=== PATIENT | male | born 1945 | race Hispanic/Latino ===

== ENCOUNTER 2017-07-07 19:29 | Inpatient (IN) | payer MEDICARE, BC ==
[2017-07-07 19:40] VITALS: BMI 42.4
--- NOTE | 2017-07-07 19:55 | CP.PCM.CON ---
History of Present Illness - History of Present Illness History of Present Illness: Tele-Stroke Consultation Note: This is a telehealth visit conducted via bi- directional video conference using the [employer] system. The patient is a 71-year-old man with diabetes, hypertension and previous lacunar infarct who developed left side weakness and facial droop at around 7: 05 PM. He presented to the ED where his peripheral strength seemed to be improving, but he continued to have facial droop and dysarthria. CT scan of the head showed a chronic right caudate lacunar infarct, but no acute findings and no bleed. When I spoke with his , she informed me that he just flew in from [place] and she actually first noticed the facial droop about 4.5 hours ago , but she was not certain if he had it before. On exam, he had a left facial droop, left arm pronator drift, and mild dysarthria. NIHSS was 3. He was hypertensive in the 230's systolic range. Since the patient's symptoms started over 3 hours ago and he had a previous stroke, he was not a candidate for IV tPA. Review of Systems - Review of Systems All systems: reviewed and no additional remarkable complaints except Past Patient History - Infectious Disease Hx of Infectious Diseases: None - Past Social History Smoking Status: Never Smoked - CARDIAC Hx Hypertension: Yes - ENDOCRINE/METABOLIC Hx Diabetes Mellitus Type 2: Yes - INTEGUMENTARY Other/Comment: has been seen by Dr Flores for care to right lower leg/ lymphedema - MUSCULOSKELETAL/RHEUMATOLOGICAL Hx Falls: No - GASTROINTESTINAL Hx Gastrointestinal Disorders: No - PSYCHIATRIC Hx Psychophysiologic Disorder: No Hx Substance Use: No - SURGICAL HISTORY Other/Comment: varicose vein injections with Dr Luis Zhou in 2009 - ANESTHESIA Hx Anesthesia: Yes Hx Anesthesia Reactions: No Hx Malignant Hyperthermia: No Meds Allergies/Adverse Reactions: Allergies Allergy/AdvReac Type Severity Reaction Status Date / Time No Known Allergies Allergy Verified 07/19/14 14:37 - Medications Medications: Current Medications Sodium Chloride (Sodium Chloride 0.9%) 1,000 mls @ 100 mls/hr IV .Q10H RIGO Physical Exam - Neurological Exam Neurological exam: Alert, CN II-XII Intact, Oriented x3, Reflexes Normal Additional comments: Left arm pronator drift, left facial droop, slight dysarthria, right side is normal. NIHSS = 3 Results - Vital Signs Recent Vital Signs: Last Vital Signs Temp 97.5 F L 07/07/17 19:38 Pulse 59 L 07/07/17 19:38 Resp 18 07/07/17 19:38 BP Pulse Ox 97 07/07/17 19:38 - Labs Result Diagrams: 07/07/17 19:59 Assessment & Plan (1) Acute ischemic stroke Assessment and Plan: The patient is not a good candidate for IV tPA due to being outside the time window and having mild symptoms. I recommend the followin. Telemetry and STAT CTA of the head/neck to rule out an LVO 2. MRI of the brain without contrast 3. Echocardiogram with bubble study 4. Load with Plavix 300 mg once and Aspirin 81 mg once, and continue dual antiplatelet therapy with Plavix 75 mg daily and Aspirin 81 mg daily for 21 days , at which point, switch to Plavix monotherapy per the CHANCE trial. 5. FLuids with NS at 100 mL/hr 6. Keep HOB at 15-30 degrees 7. Permissive HTN (only treat BP that is higher than 220/110 mm Hg) 8. CHeck HbA1c, Lipid panel, B12, folate, Vitamin D 9. Give Lipitor 40 mg daily 10. PT/OT eval 11. Case management consult THank you. Status: Acute Priority: High
[2017-07-07 20:03] LABS: BASO # 0.01 K/mm3 (0.0-2.0); BASO % 0.2 % (0.0-3.0); EOS # 0.1 (0.0-0.7); EOS % 1.9 % (1.5-5.0); GRAN # 3.02 (1.4-6.5); GRAN % 56.3 % (50.0-68.0); HEMOGLOBIN 15.2 g/dL (14.0-18.0); LYMPH # 1.6 (1.2-3.4); MEAN CELL VOLUME 94.6 fl (80.0-105.0); MEAN CORPUSCULAR HEMOGLOBIN 32.7 pg (25.0-35.0); MEAN CORPUSCULAR HGB CONC 34.5 g/dl (31.0-37.0); MEAN PLATELET VOLUME 10.3 fl (7.0-11.0); MONO # 0.6 (0.1-0.6); MONO % 11.6 % (1.0-6.0); RBC 4.65 10^6/uL (3.5-6.1); RED CELL DISTRIBUTION WIDTH 13.5 % (11.5-14.5); WHITE BLOOD COUNT 5.4 10^3/ul (4.5-11.0)
[2017-07-07] MEDS ORDERED: Labetalol 5 mg/ml Inj 20ML IV STA (20:03)
[2017-07-07] MEDS ORDERED: Labetalol 5 mg/ml Inj 20ML ONE (20:09)
--- NOTE | 2017-07-07 20:09 | CT ---
EXAM: CT Head Without Intravenous Contrast EXAM DATE/TIME: 07/07/2017 7:37 PM CLINICAL HISTORY: 71 years old, male; Signs and symptoms; Other: Code stroke TECHNIQUE: Axial computed tomography images of the head/brain without intravenous contrast. All CT scans at this facility use one or more dose reduction techniques, viz.: automated exposure control; ma/kV adjustment per patient size (including targeted exams where dose is matched to indication; i.e. head); or iterative reconstruction technique. Coronal and sagittal reformatted images were created and reviewed. COMPARISON: Prior MRI brain of 09/30/2016. FINDINGS: BRAIN: Focal areas of low density in the basal ganglia bilaterally, most compatible with bilateral old/chronic lacunar infarcts. Small foci of air in the brain, just above the skull base on the left. These are most likely intravenous in location, located in the cavernous sinuses, and related to a recent intravenous injection or peripheral IV placement. This finding is unlikely of clinical significance. No significant acute abnormality identified. No acute hemorrhage seen within the brain. No acute extra-axial fluid collections visualized. No evidence of significant mass effect within the brain. No CT findings to suggest an acute, large territorial infarct, however, small or early acute infarcts may not be visible on CT. VENTRICLES: No evidence of significant hydrocephalus. BONES/JOINTS: No acute bony abnormality visualized. SOFT TISSUES: No acute abnormality of the visualized soft tissues is seen. SINUSES: Visualized paranasal sinuses appear clear. MASTOID AIR CELLS: Mastoid air cells appear clear. IMPRESSION: - No acute findings seen within the brain. - See above for remaining findings.
[2017-07-07 20:12] LABS: INR 1.12 (0.93-1.08); PARTIAL THROMBOPLASTIN TIME 31.3 Seconds (25.1-36.5); PROTHROMBIN TIME 12.8 SECONDS (9.4-12.5)
[2017-07-07] MEDS: Sodium Chloride 0.9% 1,000 ML IV SCH (20:15)
[2017-07-07 20:26] LABS: TROPONIN I < 0.01 ng/mL
[2017-07-07 20:41] LABS: ALB/GLOB RATIO 1.2 (1.1-1.8); ALBUMIN 3.9 g/dL (3.0-4.8); ALT/SGPT 38 U/L (7-56); AST/SGOT 30 U/L (17-59); BLOOD UREA NITROGEN 30 mg/dL (7-21); CALCIUM 9.5 mg/dL (8.4-10.5); GFR AFRICAN-AMERICAN > 60; GFR NON-AFRICAN AMERICAN 55; HDL CHOLESTEROL 37 mg/dL (29-60)
[2017-07-07 20:53] LABS: LDL CHOLESTEROL 90 mg/dL (0-129)
--- NOTE | 2017-07-07 21:38 | EDPD ---
HPI Stroke - General Time Seen by Provider: 07/07/17 19:32 Chief Complaint: Weakness/Neurological Deficit Historian: Patient - History of Present Illness Narrative History of Present Illness (Free Text): 07/07/17 19:30 Marciano Warner is a 71 year old male, whose past medical history includes bilateral venous stasis, Diabetes, hypertension, and cardiomyoptathy, who presents to the emergency department complaining of new onset left-sided weakness. Patient states he began experiencing left-sided weakness with associated slurred speech and left-sided facial droop. Patient states symptoms began at 19:00 tonight. Patient denies any fever, chills, chest pain, shortness of breath, abdominal pain, nausea, vomiting, dizziness, or any other complaints. Date:: 07/07/17 Time: 19:30 Onset:: Hours Timing: Currently Symptomatic Context: Home Exacerbated by: Nothing Relieved by: Nothing - Location Location: Speech Locate Left: Face rTPA Inclusion/Exclusion - Refusal of Treatment Patient Refused Treatment: No - Inclusion Criteria for Altepase Patient is 18 years or Older: Yes The Clinical Diagnosis of Ischemic Stroke That is Causing a Potentially Disabling Neurological Deficit: No Time of Onset is Well Established to be Less Than 270 Minute Before Treatment Would Begin: No Risk/Benefit Discussed With Patient/Family Member Present: Yes - Exclusion Criteria for Altepase Uncontrolled Hypertension at Time of Treatment (Systolic BP above 185 or Diastolic BP above 110 mmHg): Yes Active Internal Bleeding: No Known Bleeding Diathesis Including but Not Limited to: Platelets Below 100,000/ mm,PTT Above 40 sec After Heparin Use, Current Use of Oral Anitcoagulant With INR Greater Than 1.7 or PT Greater Than 15 secs: No Evidence of an Intracranial Hemorrhage: No Evidence of Major Acute Infarct With Signs Greater Than 1/3 MCA Territory: No Suspicion of Subarachnoid Hemorrhage on Pretreatment Evaluation Even if CT Head Negative For Hemorrhage: No - Warning to TPA With Conditions Following Conditions Weighed Against Anticipated Benefit: Yes Condition: Stroke Serevity Too Mild Past Medical History - Provider Review Nursing Documentation Reviewed: Yes - Past History Past History: No Previous - Infectious Disease Hx of Infectious Diseases: None - Past Medical History Past Medical History: No Previous - Cardiac Hx Hypertension: Yes - Endocrine/Metabolic Hx Diabetes Mellitus Type 2: Yes - Integumentary Other/Comment: has been seen by Dr Flores for care to right lower leg/ lymphedema - Musculoskeletal/Rheumatological Hx Falls: No - Gastrointestinal Hx Gastrointestinal Disorders: No - Psychiatric Hx Psychophysiologic Disorder: No Hx Substance Use: No - Past Surgical History Past Surgical History: Non-Contributing - Surgical History Other/Comment: varicose vein injections with Dr Luis Zhou in 2010 - Anesthesia Hx Anesthesia: Yes Hx Anesthesia Reactions: No Hx Malignant Hyperthermia: No - Suicidal Assessment Feels Threatened In Home Enviroment: No Family/Social History - Family/Social History Family History: Non-Contributory - DrRonald Review Nursing documentation reviewed.: Yes Allergies/Home Meds Allergies/Adverse Reactions: Allergies No Known Allergies Allergy (Verified 07/07/17 22:42) Home Medications: Home Meds Medication Instructions Recorded Confirmed Carvedilol [Coreg Cr] 20 mg PO DAILY 06/23/14 07/07/17 Furosemide [Lasix] 40 mg PO DAILY 12/26/16 07/08/17 Valsartan [Diovan] 320 mg PO DAILY 12/26/16 07/07/17 Review of Systems - Physician Review All systems were reviewed & negative as marked: Yes - Review of Systems Systems not reviewed;Unavailable: Acuity of Condition Constitutional: Normal. absent: Fevers Eyes: Normal ENT: Normal Respiratory: Normal. absent: SOB, Cough Cardiovascular: absent: Chest Pain Gastrointestinal: Normal. absent: Abdominal Pain, Diarrhea, Nausea, Vomiting Genitourinary Male: Normal. absent: Dysuria, Frequency, Hematuria, Urinary Output Changes Musculoskeletal: absent: Back Pain, Neck Pain Skin: Normal Neurological: Focal Weakness (+left-sided weakness), Speech Changes (+slurred speech), Facial Droop (+left-sided facial droop) Endocrine: Normal Hemo/Lymphatic: Normal Psychiatric: Normal ED Stroke Physical Exam Vital Signs Reviewed: Yes Vital Signs Temp Pulse Resp BP Pulse Ox 07/07/17 21:20 55 L 18 201/75 H 100 07/07/17 20:14 53 L 184/112 H 07/07/17 19:58 225/130 H 07/07/17 19:38 97.5 F L 59 L 18 97 Temperature: Afebrile Blood Pressure: Normal Pulse: Regular Respiratory Rate: Normal Appearance: Positive for: Well-Appearing, Non-Toxic, Comfortable Pain Distress: None Mental Status: Positive for: Alert and Oriented X 3 Finger Stick Blood Glucose: 134 - Systems Exam Head: Present: Atraumatic, Normocephalic Pupils: Present: PERRL Extroacular Muscles: Present: EOMI Conjunctiva: Present: Normal Mouth: Present: Moist Mucous Membranes Neck: Present: Normal Range of Motion Respiratory/Chest: Present: Clear to Auscultation, Good Air Exchange. No: Respiratory Distress, Accessory Muscle Use Cardiovascular: Present: Regular Rate and Rhythm, Normal S1, S2. No: Murmurs Abdomen: Present: Normal Bowel Sounds. No: Tenderness, Distention, Peritoneal Signs Back: Present: GCS, CN, SP Upper Extremity: Present: Capillary Refill < 2s. No: Cyanosis, Edema, Tenderness, Swelling, Erythema, Deformity Lower Extremity: No: Edema, Tenderness, Swelling, Erythema Neurologic: Present: GCS=15, Speech Normal, Pronator Drift (Left-sided pronator drift), Facial Droop (Left-sided facial droop). No: Motor Func Grossly Intact ( Left-sided weakness) Skin: Present: Warm, Dry, Normal Color. No: Rashes Lymphatic: Present: OX3, NI, NC Psychiatric: Present: Alert, Oriented x 3, Normal Insight, Normal Concentration Medical Decision Making ED Course and Treatment: 07/07/17 19:30 Impression: 71 year old male complaining of left-sided weakness, slurred speech, and left- sided facial droop. Differential Diagnosis included but are not limited to: TIA vs. CVA Plan: -- CT Head w/o contrast -- CTA Head/Neck -- EKG -- CXR -- Labs, blood type and screen, troponin, lipid panel -- Reassess and disposition Progress Notes: 07/07/17 19:32 Pt seen on arrival to emergency department. Code Stroke called. Pt taken to CT scan. 07/07/17 19:40 Family present at bedside, states symptoms began around 16:00. Case discussed with Dr. Rivera, who is aware and agrees with plan. Pt not a candidate for tPA. 07/07/17 19:52 Reviewed EKG, sinus bradycardia at 52 bpm. 1st degree AV block. Inferior infarct. Non-specific ST/T wave changes. 07/07/17 20:10 Reviewed radiology, CT Head shows: BRAIN: Focal areas of low density in the basal ganglia bilaterally, most compatible with bilateral old/chronic lacunar infarcts. Small foci of air in the brain, just above the skull base on the left. These are most likely intravenous in location, located in the cavernous sinuses, and related to a recent intravenous injection or peripheral IV placement. This finding is unlikely of clinical significance. No significant acute abnormality identified. No acute hemorrhage seen within the brain. No acute extra-axial fluid collections visualized. No evidence of significant mass effect within the brain. No CT findings to suggest an acute, large territorial infarct, however, small or early acute infarcts may not be visible on CT. VENTRICLES: No evidence of significant hydrocephalus. BONES/JOINTS: No acute bony abnormality visualized. SOFT TISSUES: No acute abnormality of the visualized soft tissues is seen. SINUSES: Visualized paranasal sinuses appear clear. MASTOID AIR CELLS: Mastoid air cells appear clear. IMPRESSION: - No acute findings seen within the brain. - See above for remaining findings. 07/07/17 22:[address] Carter, who is aware and agrees with plan. Accepts pt in to hospitalist. Pt will go to Telemetry observation for cerebral infarction. resident assistant cna notified. 07/07/17 22:20 CTA Head/Neck shows: HEAD: RIGHT ANTERIOR CEREBRAL ARTERY: No evidence of occlusion. No aneurysm visualized. RIGHT MIDDLE CEREBRAL ARTERY: Best seen on image 403 of series 4, there is either a tight stenosis or short segment occlusion at the origin of an M2 branch of the right middle cerebral artery. There is good flow distal to this, however, with no evidence of complete occlusion or vessel cutoff. No aneurysm visualized. RIGHT POSTERIOR CEREBRAL ARTERY: No evidence of occlusion. No aneurysm visualized. LEFT ANTERIOR CEREBRAL ARTERY: No evidence of occlusion. No aneurysm visualized. LEFT MIDDLE CEREBRAL ARTERY: No evidence of occlusion. No aneurysm visualized. LEFT POSTERIOR CEREBRAL ARTERY: No evidence of occlusion. No aneurysm visualized. BASILAR ARTERY: No evidence of occlusion or significant stenosis. No aneurysm visualized. NECK: RIGHT COMMON CAROTID ARTERY: No evidence of occlusion. No evidence of dissection. RIGHT INTERNAL CAROTID ARTERY: Small amount of calcified plaque in the right carotid bulb, causing a mild approximately 20% stenosis. Calcified plaque in the cavernous and supraclinoid segments of the right internal carotid artery, with no evidence of occlusion. RIGHT EXTERNAL CAROTID ARTERY: No evidence of occlusion. RIGHT VERTEBRAL ARTERY: Minimal calcified plaque in the right vertebral artery, at its origin and distally. No evidence of occlusion or dissection. LEFT COMMON CAROTID ARTERY: No evidence of occlusion. LEFT INTERNAL CAROTID ARTERY: Calcified plaque in the cavernous and supraclinoid segments of the left internal carotid artery, with no evidence of occlusion. No significant internal carotid artery stenosis. LEFT EXTERNAL CAROTID ARTERY: Small amount of calcified plaque at the origin of the left external carotid artery. No evidence of occlusion. LEFT VERTEBRAL ARTERY: Small amount of calcified plaque at the origin of the left vertebral artery. No evidence of occlusion or dissection. HEAD and NECK: BONES/JOINTS: No acute bony abnormality identified. SOFT TISSUES: No acute abnormality of the visualized soft tissues seen. 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 The left common carotid and subclavian arteries arise from the left arch, and the right common carotid and subclavian arteries arise from the right arch. The arch encircles the trachea. CAROTID STENOSIS REFERENCE USING NASCET CRITERIA: % ICA stenosis = (1 - narrowest ICA diameter/diameter of distal cervical ICA) x 100. Mild - <50% stenosis. Moderate - 50-69% stenosis. Severe - 70-94% stenosis. Near occlusion - 95-99% stenosis. Occluded - 100% stenosis. IMPRESSION: - Findings suspicious for segmental occlusion or a tight stenosis at the origin of an M2 branch of the right middle cerebral artery. There is flow distal to this, however, with no evidence of complete occlusion or vessel cutoff. - Otherwise, no significant acute abnormality. - Double aortic arch incidentally noted, a congenital vascular anomaly. - Findings compatible with a mild approximately 20% stenosis of the right internal carotid artery. - See above for remaining findings. - Critical Care Critical Care Minutes: 30 minutes - Lab Interpretations Lab Results: 07/07/17 19:59 07/07/17 19:59 Lab Results 07/07/17 19:59: Sodium 145, Potassium 4.4, Chloride 108 H, Carbon Dioxide 28, Anion Gap 14, BUN 30 H, Creatinine 1.3, Est GFR ( Amer) > 60, Est GFR ( Non-Af Amer) 55, Random Glucose 153 H, Calcium 9.5, Total Bilirubin 0.4, AST 30 , ALT 38, Alkaline Phosphatase 93, Troponin I < 0.01, Total Protein 7.0, Albumin 3.9, Globulin 3.2, Albumin/Globulin Ratio 1.2, Triglycerides 183 H, Cholesterol 148, LDL Cholesterol Direct 90, HDL Cholesterol 37 07/07/17 19:59: PT 12.8 H, INR 1.12 H, APTT 31.3 07/07/17 19:59: WBC 5.4, RBC 4.65, Hgb 15.2, Hct 44.0, MCV 94.6, MCH 32.7, MCHC 34.5, RDW 13.5, Plt Count 171, MPV 10.3, Gran % 56.3, Lymph % (Auto) 30.0, [place] % (Auto) 11.6 H, Eos % (Auto) 1.9, Baso % (Auto) 0.2, Gran # 3.02, Lymph # (Auto ) 1.6, [place] # (Auto) 0.6, Eos # (Auto) 0.1, Baso # (Auto) 0.01 I have reviewed the lab results: Yes - RAD Interpretation Radiology Orders: 07/07/17 19:37 HEAD W/O (CODE STROKE) [CT] Stat CHEST PORTABLE [RAD] Stat 07/07/17 20:05 CTA HEAD/NECK CODE STROKE [CT] Stat [employer] Trainer: ED Physician, Radiologist - EKG Interpretation Interpreted by ED Physician: Yes Type: 12 lead EKG - Medication Orders Current Medication Orders: Sodium Chloride (Sodium Chloride 0.9%) 1,000 mls @ 100 mls/hr IV .Q10H RIGO Last Admin: 07/07/17 20:15 Dose: 100 mls/hr eMAR Start Stop Document 07/07/17 20:15 AD (Rec: 07/07/17 20:15 AD [id number]) Intravenous Solution Start Date 07/07/17 Start Time 20:15 Discontinued Medications Aspirin (Aspirin Supp) 300 mg RC STAT STA Stop: 07/07/17 20:56 Labetalol HCl (Trandate) 10 mg IV STAT STA Stop: 07/07/17 20:04 Last Admin: 07/07/17 20:14 Dose: 10 mg eMAR Start Stop Document 07/07/17 20:14 AD (Rec: 07/07/17 20:15 AD [id number]) Intravenous Solution Start Date 07/07/17 Start Time 20:14 MAR Pulse and Blood Pressure Document 07/07/17 20:14 AD (Rec: 07/07/17 20:15 AD [id number]) Pulse Pulse Rate (60-90) 53 Blood Pressure Blood Pressure (100/60-150/90) 184/112 - Scribe Statement The provider has reviewed the documentation as recorded by the Sundeep Denton Provider Scribe Attestation: All medical record entries made by the Scribe were at my direction and personally dictated by me. I have reviewed the chart and agree that the record accurately reflects my personal performance of the history, physical exam, medical decision making, and the department course for this patient. I have also personally directed, reviewed, and agree with the discharge instructions and disposition. NIHSS Scale ([place]weeny) Time Performed: 19:32 - How Severe is the Stoke Baseline Level of Consciousness: 0=Alert LOC to Questions: 0=Both comments correct LOC to commands: 0=Obeys both correctly Best Gaze: 0=Normal Visual: 0=No visual loss Facial: 1=Minor asymmetry Motor Arm - Left: 0=No drift Motor Arm - Right: 0=No drift Motor Leg - Left: 1=Drift before 5 sec Motor Leg - Right: 0=No drift Limb Ataxia: 0=Absent Sensory: 0=Normal Best Language: 1=Mild to moderate aphasia Dysarthia: 0=Normal articulation Extinction & Inattention (Neglect): 0=Normal, no object Score: 3 Risk Level: Minor Stroke Risk Disposition/Present on Arrival - Present on Arrival Any Indicators Present on Arrival: No History of DVT/PE: No History of Uncontrolled Diabetes: No Urinary Catheter: No History of Decub. Ulcer: No History Surgical Site Infection Following: None - Disposition Have Diagnosis and Disposition been Completed?: Yes Diagnosis: Acute ischemic stroke Disposition: HOSPITALIZED Disposition Time: 22:00 Patient Problems: Current Active Problems Problem Status Onset Acute ischemic stroke Acute Condition: FAIR
--- NOTE | 2017-07-07 22:20 | CT ---
EXAM: CT Angiography Head With Intravenous Contrast CT Angiography Neck With Intravenous Contrast EXAM DATE/TIME: 07/07/2017 8:05 PM CLINICAL HISTORY: 71 years old, male; Signs and symptoms; Other: CVA TECHNIQUE: Axial computed tomographic angiography images of the head and neck with intravenous contrast using CT angiography protocol. All CT scans at this facility use one or more dose reduction techniques, viz.: automated exposure control; ma/kV adjustment per patient size (including targeted exams where dose is matched to indication; i.e. head); or iterative reconstruction technique. All CT scans at this facility use one or more dose reduction techniques, viz.: automated exposure control; ma/kV adjustment per patient size (including targeted exams where dose is matched to indication; i.e. head); or iterative reconstruction technique. MIP reconstructed images were created and reviewed. Coronal and sagittal reformatted images were created and reviewed. CONTRAST: 150 mL of omnipaque 350 administered intravenously. COMPARISON: Recent Head CT. FINDINGS: HEAD: RIGHT ANTERIOR CEREBRAL ARTERY: No evidence of occlusion. No aneurysm visualized. RIGHT MIDDLE CEREBRAL ARTERY: Best seen on image 403 of series 4, there is either a tight stenosis or short segment occlusion at the origin of an M2 branch of the right middle cerebral artery. There is good flow distal to this, however, with no evidence of complete occlusion or vessel cutoff. No aneurysm visualized. RIGHT POSTERIOR CEREBRAL ARTERY: No evidence of occlusion. No aneurysm visualized. LEFT ANTERIOR CEREBRAL ARTERY: No evidence of occlusion. No aneurysm visualized. LEFT MIDDLE CEREBRAL ARTERY: No evidence of occlusion. No aneurysm visualized. LEFT POSTERIOR CEREBRAL ARTERY: No evidence of occlusion. No aneurysm visualized. BASILAR ARTERY: No evidence of occlusion or significant stenosis. No aneurysm visualized. NECK: RIGHT COMMON CAROTID ARTERY: No evidence of occlusion. No evidence of dissection. RIGHT INTERNAL CAROTID ARTERY: Small amount of calcified plaque in the right carotid bulb, causing a mild approximately 20% stenosis. Calcified plaque in the cavernous and supraclinoid segments of the right internal carotid artery, with no evidence of occlusion. RIGHT EXTERNAL CAROTID ARTERY: No evidence of occlusion. RIGHT VERTEBRAL ARTERY: Minimal calcified plaque in the right vertebral artery, at its origin and distally. No evidence of occlusion or dissection. LEFT COMMON CAROTID ARTERY: No evidence of occlusion. LEFT INTERNAL CAROTID ARTERY: Calcified plaque in the cavernous and supraclinoid segments of the left internal carotid artery, with no evidence of occlusion. No significant internal carotid artery stenosis. LEFT EXTERNAL CAROTID ARTERY: Small amount of calcified plaque at the origin of the left external carotid artery. No evidence of occlusion. LEFT VERTEBRAL ARTERY: Small amount of calcified plaque at the origin of the left vertebral artery. No evidence of occlusion or dissection. HEAD and NECK: BONES/JOINTS: No acute bony abnormality identified. SOFT TISSUES: No acute abnormality of the visualized soft tissues seen. 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 The left common carotid and subclavian arteries arise from the left arch, and the right common carotid and subclavian arteries arise from the right arch. The arch encircles the trachea. CAROTID STENOSIS REFERENCE USING NASCET CRITERIA: % ICA stenosis = (1 - narrowest ICA diameter/diameter of distal cervical ICA) x 100. Mild - <50% stenosis. Moderate - 50-69% stenosis. Severe - 70-94% stenosis. Near occlusion - 95-99% stenosis. Occluded - 100% stenosis. IMPRESSION: - Findings suspicious for segmental occlusion or a tight stenosis at the origin of an M2 branch of the right middle cerebral artery. There is flow distal to this, however, with no evidence of complete occlusion or vessel cutoff. - Otherwise, no significant acute abnormality. - Double aortic arch incidentally noted, a congenital vascular anomaly. - Findings compatible with a mild approximately 20% stenosis of the right internal carotid artery. - See above for remaining findings.
--- NOTE | 2017-07-08 00:54 | CP.PCM.HP ---
<Guillermo Freeman - Last Filed: 07/08/17 01:27> History of Present Illness - History of Present Illness History of Present Illness: CC: facial droop, fall Pt is a 71 yo with PMH of HTN, peripheral edema, and CVA (09/2016) presents to [facility] after facial droop and witnessed fall. Pt states that he had recently flown back to [place] from [place] around 4 pm prior to arrival at ED. Once patient got home he tried to drink toro robbin and began to choke. Pt states that his left leg felt weak and he subsequently fell. Pt and family denies any trauma during the fall. Pt's family noticed a left facial droop, right eye swelling, and slurred speech. Pt also complained of fatigue and left flank pain for the past 10 days, but denied any urinary symptoms. Apon arrival, patient was evaluated by neurologist. As patient's symptoms had started more than 3 hours prior to evaluation and he had a previous stroke, he was not a candidate for IV tPA. Pt denied CP, SOB, n/v/d, abdominal pain, fever, chills, [place], or dizziness. PMH: HTN, peripheral edema, CVA Surg: Denied All: NKDA FHx: DM SH: Admits to social EtOH use; Denied tobacco and illicit drug use. PMD: [place] Present on Admission - Present on Admission Any Indicators Present on Admission: No Review of Systems - Review of Systems Review of Systems: 12 point ROS reviewed and is negative other than what is stated in HPI. Past Patient History - Infectious Disease Hx of Infectious Diseases: None - Past Social History Smoking Status: Never Smoked - CARDIAC Hx Hypertension: Yes - ENDOCRINE/METABOLIC Hx Diabetes Mellitus Type 2: Yes - INTEGUMENTARY Other/Comment: has been seen by Dr Flores for care to right lower leg/ lymphedema - MUSCULOSKELETAL/RHEUMATOLOGICAL Hx Falls: No - GASTROINTESTINAL Hx Gastrointestinal Disorders: No - PSYCHIATRIC Hx Psychophysiologic Disorder: No Hx Substance Use: No - SURGICAL HISTORY Other/Comment: varicose vein injections with Dr Luis Zhou in 2009 - ANESTHESIA Hx Anesthesia: Yes Hx Anesthesia Reactions: No Hx Malignant Hyperthermia: No Meds Allergies/Adverse Reactions: Allergies Allergy/AdvReac Type Severity Reaction Status Date / Time No Known Allergies Allergy Verified 07/07/17 22:42 Physical Exam - Constitutional Appears: No Acute Distress - Head Exam Head Exam: NORMAL INSPECTION - Eye Exam Eye Exam: Normal appearance - ENT Exam ENT Exam: Mucous Membranes Moist - Neck Exam Neck exam: Positive for: Normal Inspection - Respiratory Exam Respiratory Exam: Clear to Auscultation Bilateral. absent: Decreased Breath Sounds, Rales, Rhonchi, Wheezes, Respiratory Distress - Cardiovascular Exam Cardiovascular Exam: RRR, +S1, +S2. absent: Diastolic murmur, Gallop, Rubs, Systolic Murmur - GI/Abdominal Exam GI & Abdominal Exam: Soft. absent: Distended, Guarding, Rebound, Tenderness - Extremities Exam Extremities exam: Positive for: normal capillary refill, pedal pulses present. Negative for: tenderness Additional comments: 1+ edema RLE - Back Exam Back exam: NORMAL INSPECTION - Neurological Exam Neurological exam: Alert, CN II-XII Intact, Oriented x3 Additional comments: slight dysarthria, dysmetria noted on finger to nose test, UE strength intact, LLE strength 3/5, RLE strength 4/5, no dysdiadodyskinesia, left sided facial droop, tongue deviates to left - Psychiatric Exam Psychiatric exam: Normal Affect, Normal Mood - Skin Skin Exam: Dry, Intact, Normal Color, Warm Results - Vital Signs Recent Vital Signs: Last Vital Signs Temp 97.5 F L 07/07/17 19:38 Pulse 55 L 07/07/17 23:22 Resp 18 07/07/17 23:22 BP 163/72 H 07/07/17 23:22 Pulse Ox 99 07/07/17 23:22 - Labs Result Diagrams: 07/07/17 19:59 07/07/17 19:59 Assessment & Plan - Assessment and Plan (Free Text) Assessment: 71 yo M with PMH HTN, peripheral edema, and stroke admitted for acute ischemic stroke. Plan: 1. Acute ischemic stroke - Patient evaluated by Neurologist on arrival, not a candidate for tPA - Head CT showed no acute findings - CTA Head/Neck showed findings suspicious for segmental occlusion or a tight stenosis at the origin of an M2 branch of the R MCA, otherwise no acute abnormality - ASA 325 given in ED - Swallow eval, NPO for now - Aspiration and fall precautions - Neuro checks - Neurology consulted MRI of brain without contrast Echo with bubble study Plavix 300 mg load (unable to give due to failed bedside swallow evaluation) , followed by dual antiplatelet therapy Lipitor 40 mg daily HOB 30 degrees NS at 100 Permissive HTN (treat only if > 220/110) HgbA1c, Lipid panel, B12, folate, Vitamin D ordered PT/OT eval and treat Case management 2. HTN - Permissive HTN - Treat only if > 220/110 - Holding home medications 3. Peripheral edema - Hold home Lasix to avoid drop in BP GI/DVT PPx - Protonix - SCDs Pt seen and discussed in detail with Dr. Carter. Yaniv Freeman, PGY1 NIHSS Scale ([place]) Time Performed: 23:00 - How Severe is the Stoke Baseline Level of Consciousness: 0=Alert LOC to Questions: 0=Both comments correct LOC to commands: 0=Obeys both correctly Best Gaze: 0=Normal Visual: 0=No visual loss Facial: 1=Minor asymmetry Motor Arm - Left: 0=No drift Motor Arm - Right: 0=No drift Motor Leg - Left: 0=No drift Motor Leg - Right: 0=No drift Limb Ataxia: 1=Present Upper or Lower Sensory: 0=Normal Best Language: 0=No aphasia Dysarthia: 1=Mild to moderate slurring Extinction & Inattention (Neglect): 0=Normal, no object Score: 3 Risk Level: Minor Stroke Risk <Kelly Carter - Last Filed: 07/08/17 01:42> Results - Vital Signs Recent Vital Signs: Last Vital Signs Temp 97.5 F L 07/07/17 19:38 Pulse 55 L 07/07/17 23:22 Resp 18 07/07/17 23:22 BP 163/72 H 07/07/17 23:22 Pulse Ox 98 07/08/17 01:07 - Labs Result Diagrams: 07/07/17 19:59 07/07/17 19:59 Attending/Attestation - Attestation I have personally seen and examined this patient.: Yes I have fully participated in the care of the patient.: Yes I have reviewed all pertinent clinical information: Yes Notes (Text): 07/08/17 01:38 Addendum:O/E of the eyes,slight puffiness of the R eyelids noted. L sided midback pain appears to be musculoskeletal pain. Agree with documentation and orders placed. 07/08/17 01:40
[2017-07-08 06:26] LABS: HEMOGLOBIN 14.6 g/dL (14.0-18.0); MEAN CELL VOLUME 94.3 fl (80.0-105.0); MEAN CORPUSCULAR HEMOGLOBIN 32.2 pg (25.0-35.0); MEAN CORPUSCULAR HGB CONC 34.1 g/dl (31.0-37.0); MEAN PLATELET VOLUME 10.7 fl (7.0-11.0); RBC 4.54 10^6/uL (3.5-6.1); RED CELL DISTRIBUTION WIDTH 13.6 % (11.5-14.5); WHITE BLOOD COUNT 5.3 10^3/ul (4.5-11.0)
[2017-07-08 06:44] LABS: ALB/GLOB RATIO 1.2 (1.1-1.8); ALBUMIN 3.5 g/dL (3.0-4.8); ALT/SGPT 37 U/L (7-56); AST/SGOT 28 U/L (17-59); BLOOD UREA NITROGEN 26 mg/dL (7-21); CALCIUM 9.1 mg/dL (8.4-10.5); GFR AFRICAN-AMERICAN > 60; GFR NON-AFRICAN AMERICAN > 60; HDL CHOLESTEROL 36 mg/dL (29-60)
[2017-07-08 06:56] LABS: LDL CHOLESTEROL 89 mg/dL (0-129)
[2017-07-08] MEDS: Sodium Chloride 0.9% 1,000 ML IV SCH (07:45)
--- NOTE | 2017-07-08 09:08 | MRI ---
PROCEDURE: MRI BRAIN WITHOUT CONTRAST HISTORY: cva COMPARISON: None. TECHNIQUE: Multiplanar, multisequence MR images of the brain were obtained without intravenous contrast enhancement. FINDINGS: HEMORRHAGE: None DWI: There is an acute infarct in the right basal ganglia and katz radiata. The infarct measures 10 x 30 mm. BRAIN PARENCHYMA: No mass effect or edema. No atrophy or chronic microvascular ischemic changes. VENTRICLES: Unremarkable. No hydrocephalus. CRANIUM: Unremarkable. ORBITS: Grossly unremarkable. PARANASAL SINUSES/MASTOIDS: Clear VASCULAR SYSTEM: Skull base flow voids intact. OTHER FINDINGS: None. IMPRESSION: There is an acute infarct in the right basal ganglia and katz radiata. The infarct measures 10 x 30 mm.
--- NOTE | 2017-07-08 09:20 | RAD ---
HISTORY: Code Stroke COMPARISON: 07/19/2014 FINDINGS: LUNGS: No active pulmonary disease. PLEURA: No significant pleural effusion identified, no pneumothorax apparent. CARDIOVASCULAR: Mild cardiomegaly and mild vascular congestion OSSEOUS STRUCTURES: No significant abnormalities. VISUALIZED UPPER ABDOMEN: Normal. OTHER FINDINGS: None. IMPRESSION: Mild cardiomegaly and mild vascular congestion
--- NOTE | 2017-07-08 12:58 | CP.PCM.PN ---
Subjective - Date & Time of Evaluation Date of Evaluation: 07/08/17 Time of Evaluation: 12:54 - Subjective Subjective: Mr. Warner was seen and examined today at bedside. His was present and had some questions about his medications. The patient has not been on any antiplatelet agents for several years now. His blood pressure has been uncontrolled. He is not on any medications for diabetes at home. Today, he continued to have left side weakness and dysarthria. NIHSS was stable at 3. There were no acute events overnight. His BP was still elevated. When checked it was 195/90 mm Hg. Objective - Vital Signs/Intake and Output Vital Signs (last 24 hours): Temp Pulse Resp BP Pulse Ox 98 F 55 L 197 H 197/98 H 95 07/08/17 12:00 07/08/17 12:10 07/08/17 12:10 07/08/17 12:00 07/08/17 06:00 - Medications Medications: Current Medications Aspirin (Aspirin Chewable) 81 mg PO DAILY [facility] Atorvastatin Calcium (Lipitor) 40 mg PO DIN [facility] Clopidogrel Bisulfate (Plavix) 75 mg PO DAILY [facility] Hydralazine HCl (Apresoline) 10 mg PO QID PRN PRN Reason: for sbp>170 Sodium Chloride (Sodium Chloride 0.9%) 1,000 mls @ 100 mls/hr IV .Q10H [facility] Last Admin: 07/08/17 07:45 Dose: 100 mls/hr Pantoprazole Sodium (Protonix Inj) 40 mg IVP DAILY [facility] Last Admin: 07/08/17 10:01 Dose: 40 mg Valsartan (Diovan) 320 mg PO DAILY [facility] - Labs Labs: PT 12.8 SECONDS (9.4-12.5) H 07/07/17 19:59 INR 1.12 (0.93-1.08) H 07/07/17 19:59 APTT 31.3 Seconds (25.1-36.5) 07/07/17 19:59 - Neurological Exam Neurological Exam: Abnormal Gait, Alert, Awake, CN II-XII Intact, Oriented x3, Reflexes Normal Neuro motor strength exam: Left Upper Extremity: 3, Right Upper Extremity: 5, Left Lower Extremity: 3, Right Lower Extremity: 5 Additional comments: Speech was slightly dysarthric, not aphasic. NIHSS = 3 Assessment and Plan (1) Acute ischemic stroke Assessment & Plan: Continue aspirin/plavix, statin and control serum glucose. Start losartan today and will start amlodipine 5 mg tomorrow morning to start normalizing BP over the next 24 hours. MRI of the brain was consistent with a small right basal ganglia infarct, likely due to uncontrolled hypertension and diabetes. Status: Acute
[2017-07-08 13:26] LABS: FOLATE 18.1 ng/mL
--- NOTE | 2017-07-08 16:44 | RAD ---
PROCEDURE: Radiographs of the pelvis and bilateral hips HISTORY: injury COMPARISON: None. FINDINGS: BONES: Pelvis: Unremarkable. Right hip:Unremarkable. Left hip:Unremarkable. JOINTS: Right hip: Unremarkable. Left hip: Unremarkable. Sacroiliac Joints: Unremarkable. Pubic symphysis: Unremarkable. SOFT TISSUES: Normal. OTHER FINDINGS: None. IMPRESSION: Unremarkable radiographs of the hips and pelvis.
--- NOTE | 2017-07-08 17:50 | CARD ---
APPROVED REPORT EXAM: Two-dimensional and M-mode echocardiogram with Doppler and color Doppler. INDICATION BUBBLE STUDY TO R/O PFO.. 2D DIMENSIONS Left Atrium (2D)5.4 (1.6-4.0cm)IVSd1.6 (0.7-1.1cm) LVDd5.9 (3.9-5.9cm)PWd1.6 (0.7-1.1cm) LVDs4.2 (2.5-4.0cm)FS (%) 28.5 % LVEF (%)54.3 (>50%) M-Mode DIMENSIONS Aortic Root4.40 (2.2-3.7cm)Aortic Cusp Exc.2.10 (1.5-2.0cm) Aortic Valve AoV Peak Pwczgyrr717.0cm/Monet Peak GR.10mmHg Mitral Valve MV E Zbmpdsba45.5cm/sMV A Clvyggrk87.5cm/sE/A ratio0.9 TDI Lateral E' Peak V8.19cm/sMedial E' Peak V4.78cm/sE/Lateral E'9.0 E/Medial E'15.4 Pulmonary Valve PV Peak Doidgcgy41.3cm/sPV Peak Grad.3mmHg Tricuspid Valve TR Peak Nuezdoso301gl/sRAP [id number] Peak Gr.22mmHg [id number] LEFT VENTRICLE The left ventricle is normal size. There is normal left ventricular wall thickness. The left ventricular function is normal. The left ventricular ejection fraction is within the normal range. There is normal LV segmental wall motion. Transmitral Doppler flow pattern is Grade I-abnormal relaxation pattern. RIGHT VENTRICLE The right ventricle is normal size. There is normal right ventricular wall thickness. The right ventricular systolic function is normal. ATRIA The left atrium size is normal. The right atrium size is normal. The interatrial septum is intact with no evidence for an atrial septal defect. AORTIC VALVE The aortic valve is normal in structure. There is trace aortic regurgitation. MITRAL VALVE The mitral valve is normal in structure. There is no mitral valve regurgitation noted. There is no mitral valve stenosis. TRICUSPID VALVE The tricuspid valve is normal in structure. There is trace tricuspid regurgitation. GREAT VESSELS The aortic root is mildly enlarged. PERICARDIAL EFFUSION There is a trace loculated anterior pericardial effusion. <Conclusion> The left ventricle is normal size. There is normal left ventricular wall thickness. The left ventricular function is normal. The left ventricular ejection fraction is within the normal range. There is normal LV segmental wall motion. Transmitral Doppler flow pattern is Grade I-abnormal relaxation pattern. The interatrial septum is intact with no evidence for an atrial septal defect.
--- NOTE | 2017-07-08 19:39 | CARD ---
APPROVED REPORT EKG Measurement Heart [id number] <Conclusion> Sinus bradycardia with 1st degree AV block Moderate voltage criteria for LVH, may be normal variant Inferior infarct, age undetermined Abnormal ECG
--- NOTE | 2017-07-08 21:26 | CON ---
DATE: 07/08/2017 REASON FOR CONSULTATION: Cardiac evaluation, admitted with acute CVA. BRIEF CLINICAL HISTORY: This is a 71-year-old male with past medical history of coronary artery disease, history of CVA, hypertension, who recently came back from [place] to [place]. After got off the plane and went to home, the patient felt right-sided facial droop, was drinking toro, he started choking, felt very weak, and fell down. The family denies any trauma, but right-sided facial droop and complaining of left-sided weakness upper and lower extremities. Still the patient talks, but difficult to understand. TPA was not given because the window period was more than 4-1/2 hours. The patient denies any chest pain or shortness of breath. Denies any palpitations. PAST MEDICAL HISTORY: Significant for hypertension, claims that he had a heart attack, history of CVA. Details of the heart attack is unknown. No documentation here in the [facility] that the patient had an [facility]. Past history of diabetes. SOCIAL HISTORY: Denies any history of smoking. Denies any history of alcohol abuse. 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 PREVIOUS CARDIAC WORKUP: The patient had a stress test on 12/26/2016 and that shows decreased LV function, ejection fraction 38%, fixed defect, no reversible ischemia, ejection fraction of 38%. The patient had no recent here echocardiography. CAT scan of the head last night done, no acute findings, going for MRI today. MEDICATIONS AT HOME: He was taking valsartan, Lasix, carvedilol CR 20 mg once a day. REVIEW OF SYSTEMS: As per HPI. PHYSICAL EXAMINATION: VITAL SIGNS: Temperature afebrile, heart rate 42, blood pressure 207/86. HEENT: PERRLA. Extraocular motions intact. NECK: Supple. No carotid bruit or thyromegaly. CHEST: Clear to auscultation. HEART: S1 and S2 regular. ABDOMEN: Soft. EXTREMITIES: Clubbing and cyanosis negative. LABORATORY DATA: Blood workup as follows: WBC 5. hemoglobin 14.6, hematocrit 42.8, platelet count 164. Chemistry shows sodium 140, potassium 3.8, chloride 110, carbon dioxide 26, anion gap of 12, BUN 26, creatinine 1. IMPRESSION: Acute cerebrovascular accident with still expressive aphasia, significantly improved left-sided weakness, still right-sided facial droop; diabetes; hypertension; hyperlipidemia; cardiomyopathy, last stress test in 12/2016 shows an ejection fraction of 38%. The patient is going for the MRI of the brain now. RECOMMENDATIONS: Aggressive control of blood pressure. We will get the lipid profile, TSH, and hemoglobin A1c. Continue aspirin. Continue Plavix as per Neurology recommendation. We will start ARELY inhibitors rate limiting the patient's bradycardia. We will follow with you. Thank you Dr. Jaleel Juares for providing us the opportunity in taking care of the patient, Timmy Tariq. We will hold the Coreg because of the bradycardia and we will put hydralazine 10 mg IV push every 6 hours for systolic more than 170. We will add lipid profile, TSH, and hemoglobin Alc in today's blood workup. Nicola Galan MD
[2017-07-09 07:09] LABS: HEMOGLOBIN 14.6 g/dL (14.0-18.0); MEAN CELL VOLUME 93.7 fl (80.0-105.0); MEAN CORPUSCULAR HEMOGLOBIN 31.9 pg (25.0-35.0); MEAN CORPUSCULAR HGB CONC 34.1 g/dl (31.0-37.0); MEAN PLATELET VOLUME 11.1 fl (7.0-11.0); RBC 4.57 10^6/uL (3.5-6.1); RED CELL DISTRIBUTION WIDTH 13.6 % (11.5-14.5); WHITE BLOOD COUNT 4.8 10^3/ul (4.5-11.0)
--- NOTE | 2017-07-09 07:20 | RAD ---
HISTORY: injury COMPARISON: Thoracic spine series [id number]. FINDINGS: BONES: Mildly accentuated thoracic curvature is reiterated. No interval fracture or spondylolisthesis identified. There is extensive multilevel spondylosis appreciated which is increased throughout the thoracic spine and now appears diffuse with confluent osteophytes suggestive of potential ankylosing spondylosis. Clinically correlate. No destructive bony lesion appreciable grossly. DISC SPACES: Normal height overall. SOFT TISSUES: Normal. OTHER FINDINGS: None. 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 Clinically correlate. No definite acute interval fracture appreciable.
[2017-07-09 07:36] LABS: ALB/GLOB RATIO 1.2 (1.1-1.8); ALBUMIN 3.4 g/dL (3.0-4.8); ALT/SGPT 35 U/L (7-56); AST/SGOT 28 U/L (17-59); BLOOD UREA NITROGEN 17 mg/dL (7-21); CALCIUM 8.6 mg/dL (8.4-10.5); GFR AFRICAN-AMERICAN > 60; GFR NON-AFRICAN AMERICAN > 60
[2017-07-09] MEDS: Nystatin 100,000 Units/gm Topical Pow(15 gm) TOP SCH (09:13)
[2017-07-09] MEDS: Insulin Reg-MEDIUM-Coverage SC SCH ×3 (12:04→22:30)
[2017-07-09] MEDS: Hydrocerin(120 gm) TOP SCH ×3 (12:18→17:30)
--- NOTE | 2017-07-09 13:22 | CP.PCM.PN ---
Addendum entered and electronically signed by Jordan Mccoy DO 08:40: Assessment and Plan: Patient's sugars have been >140, want to maintain tight glycemic control for stroke, so was started on RISS-Medium; Please try to keep sugars <140 Original Note: <Jordan Mccoy - Last Filed: 07/09/17 13:14> Subjective - Date & Time of Evaluation Date of Evaluation: 07/09/17 Time of Evaluation: 13:14 - Subjective Subjective: Medicine progress note: Dr. Josh Ramirez Patient seen and examined at bedside. Patient denied any pain, and said that the "kidney pain" he had has resolved. Patient denies any new complaints. Patient did become emotional when discussing his condition, he was reassured by medicine team. Objective - Vital Signs/Intake and Output Vital Signs (last 24 hours): Temp Pulse Resp BP Pulse Ox 97.4 F L 77 20 180/90 H 96 07/09/17 06:00 07/09/17 12:56 07/09/17 06:00 07/09/17 12:56 07/09/17 06:00 Intake and Output: 07/09/17 07/09/17 06:59 18:59 Intake Total 0 Output Total 500 Balance -500 - Medications Medications: Current Medications Acetaminophen (Tylenol 325mg Tab) 650 mg PO Q4H PRN PRN Reason: Pain, Mild (1-3) Amlodipine Besylate (Norvasc) 5 mg PO DAILY [facility] Last Admin: 07/09/17 09:02 Dose: 5 mg Aspirin (Aspirin Chewable) 81 mg PO DAILY [facility] Last Admin: 07/09/17 09:02 Dose: 81 mg Atorvastatin Calcium (Lipitor) 40 mg PO DIN [facility] Last Admin: 07/08/17 18:17 Dose: 40 mg Clopidogrel Bisulfate (Plavix) 75 mg PO DAILY [facility] Last Admin: 07/09/17 09:03 Dose: 75 mg Hydralazine HCl (Apresoline) 10 mg PO QID PRN PRN Reason: for sbp>170 Last Admin: 07/09/17 12:56 Dose: 10 mg Insulin Human Regular (Humulin R Med) 0 units SC ACHS [facility] PRN Reason: Protocol Last Admin: 07/09/17 12:04 Dose: 1 units Multi-Ingredient Cream (Hydrocerin Cream) 0 ea TOP Q4H [facility] Last Admin: 07/09/17 12:18 Dose: 1 applic Nystatin (Nystop Topical Powder) 0 gm TOP DAILY [facility] Last Admin: 07/09/17 09:13 Dose: 1 applic Pantoprazole Sodium (Protonix Inj) 40 mg IVP DAILY [facility] Last Admin: 07/09/17 09:03 Dose: 40 mg Tramadol HCl (Ultram) 50 mg PO TID PRN PRN Reason: Pain, moderate (4-7) Last Admin: 07/08/17 16:17 Dose: 50 mg Valsartan (Diovan) 320 mg PO DAILY [facility] Last Admin: 07/09/17 09:02 Dose: 320 mg - Labs Labs: 07/09/17 06:30 07/09/17 06:30 PT 12.8 SECONDS (9.4-12.5) H 07/07/17 19:59 INR 1.12 (0.93-1.08) H 07/07/17 19:59 APTT 31.3 Seconds (25.1-36.5) 07/07/17 19:59 - Constitutional Appears: Well - Head Exam Head Exam: ATRAUMATIC, NORMAL INSPECTION, NORMOCEPHALIC - Eye Exam Eye Exam: EOMI, Normal appearance, PERRL Pupil Exam: NORMAL ACCOMODATION, PERRL - ENT Exam ENT Exam: Mucous Membranes Moist, Normal Exam - Neck Exam Neck Exam: Full ROM, Normal Inspection. absent: Lymphadenopathy - Respiratory Exam Respiratory Exam: Clear to Ausculation Bilateral, NORMAL BREATHING PATTERN - Cardiovascular Exam Cardiovascular Exam: REGULAR RHYTHM, +S1, +S2. absent: Murmur - GI/Abdominal Exam GI & Abdominal Exam: Soft, Normal Bowel Sounds. absent: Tenderness - Extremities Exam Extremities Exam: Full ROM, Normal Capillary Refill, Normal Inspection. absent : Joint Swelling, Pedal Edema - Back Exam Back Exam: NORMAL INSPECTION - Neurological Exam Neurological Exam: Alert, Awake, CN II-XII Intact, Normal Gait, Oriented x3 Additional comments: Patient has 3/5 muscle strength on Left upper and lower extremities, is dysarthric, has reduced finger to nose. Sensation is intact bilaterally. Improved power since yesterday, improved dysarthria - Psychiatric Exam Psychiatric exam: Normal Affect, Normal Mood - Skin Skin Exam: Dry, Intact, Normal Color, Warm Assessment and Plan - Assessment and Plan (Free Text) Assessment: 71 yo M with PMH HTN, peripheral edema, and stroke admitted for acute ischemic stroke. Plan: Acute ischemic stroke - Patient evaluated by Neurologist on arrival, not a candidate for tPA - Head CT showed no acute findings - CTA Head/Neck showed findings suspicious for segmental occlusion or a tight stenosis at the origin of an M2 branch of the R MCA, otherwise no acute abnormality - ASA 325 given in ED - Swallow eval passed, liquid diet - Aspiration and fall precautions - Neuro checks - Neurology consulted MRI of brain without contrast: acute basal ganglia infarct Echo with bubble study Dual antiplatelet therapy Lipitor 40 mg daily HOB 30 degrees NS at 100 HgbA1c, Lipid panel, B12, folate, Vitamin D ordered PT/OT eval and treat: patient was able to be out of bed and take a few steps today. awaiting PHUC - Incentive spirometry Right Hip Pain and Back pain - XR of Hips negative - XR of thoracic spine shows ankylosing spondylosis but no acute fracture - Tylenol for pain CVA Tenderness, possibly 2/2 Nephrolithiasis - Patient had hematuria this am when seen at bedside; but CVA tenderness has resolved - CT Abdomen Pelvis - UA, Urine culture HTN - No longer needs to have permissive hypertension, control rate of decrease - Continue home medications: Hydralazine, Norvasc, Diovan Peripheral edema - Hold home Lasix to avoid drop in BP GI/DVT PPx - Protonix - SCDs <Иван Ramirez B - Last Filed: 07/12/17 15:43> Objective - Vital Signs/Intake and Output Vital Signs (last 24 hours): Temp Pulse Resp BP Pulse Ox 97.2 F L 53 L 16 147/77 99 07/12/17 12:00 07/12/17 12:00 07/12/17 12:00 07/12/17 14:57 07/12/17 06:00 Intake and Output: 07/12/17 07/12/17 06:59 18:59 Intake Total 300 Output Total 700 Balance -400 - Medications Medications: Current Medications Acetaminophen (Tylenol 325mg Tab) 650 mg PO Q4H PRN PRN Reason: Pain, Mild (1-3) Amlodipine Besylate (Norvasc) 10 mg PO DAILY [facility] Last Admin: 07/12/17 09:36 Dose: 10 mg Aspirin (Aspirin Chewable) 81 mg PO DAILY [facility] Last Admin: 07/12/17 09:36 Dose: 81 mg Atorvastatin Calcium (Lipitor) 40 mg PO DIN [facility] Last Admin: 07/11/17 18:22 Dose: 40 mg Carvedilol (Coreg) 6.25 mg PO BID [facility] Clonidine HCl (Catapres) 0.2 mg PO BID PRN PRN Reason: Other Clopidogrel Bisulfate (Plavix) 75 mg PO DAILY [facility] Last Admin: 07/12/17 09:36 Dose: 75 mg Hydralazine HCl (Apresoline) 50 mg PO TID [facility] Last Admin: 07/12/17 14:57 Dose: 50 mg Insulin Human Regular (Humulin R Med) 0 units SC ACHS [facility] PRN Reason: Protocol Last Admin: 07/12/17 12:55 Dose: 1 units Metformin HCl (Glucophage) 500 mg PO BID [facility] Multi-Ingredient Cream (Hydrocerin Cream) 0 ea TOP Q4H [facility] Last Admin: 07/12/17 15:29 Dose: Not Given Nystatin (Nystop Topical Powder) 0 gm TOP DAILY [facility] Last Admin: 07/12/17 09:37 Dose: 1 applic Pantoprazole Sodium (Protonix Ec Tab) 40 mg PO ACB [facility] Last Admin: 07/12/17 07:35 Dose: 40 mg Polyethylene Glycol (Miralax) 17 gm PO BID [facility] Tramadol HCl (Ultram) 50 mg PO TID PRN PRN Reason: Pain, moderate (4-7) Last Admin: 07/08/17 16:17 Dose: 50 mg Valsartan (Diovan) 320 mg PO DAILY [facility] Last Admin: 07/12/17 09:35 Dose: 320 mg - Labs Labs: 07/12/17 06:00 07/12/17 06:00 PT 12.8 SECONDS (9.4-12.5) H 07/07/17 19:59 INR 1.12 (0.93-1.08) H 07/07/17 19:59 APTT 31.3 Seconds (25.1-36.5) 07/07/17 19:59 Attending/Attestation - Attestation I have personally seen and examined this patient.: Yes I have fully participated in the care of the patient.: Yes I have reviewed all pertinent clinical information, including history, physical exam and plan: Yes Notes (Text): I have seen and examined the patient at bedside. Agree with the note above with the following additions/ exceptions: Briefly this is 71 year old male with history of HTN, peripheral edema, lacunar infarct with no residual deficits, obesity, non compliance with medications who was admitted for acute ischemic stroke. He was not a candidate for tPA.MRI brain revealed acute basal ganglia infarct. Echo with bubble study pending. Start dual antiplatelet therapy including aspirin and plavix.Will start lipitor. Patient has passed swallow eval. PT recommended PHUC. Encourage incentive spirometry. Pateint had hematuria due to jay administration. Will order CT abdomen as he is complaining of flank pain. Will consult cardiology. Xray hip and thoracic spine ordered. Start antihypertensive medications. Upon discharge patient will follow up with Dr Hope. Dr Иван Ramirez
--- NOTE | 2017-07-09 13:58 | CP.PCM.PN ---
Subjective - Date & Time of Evaluation Date of Evaluation: 07/09/17 Time of Evaluation: 13:52 - Subjective Subjective: Mr. Warner was seen and examined at the bedside. He is alert, oriented with periods of sleepiness. He denies any headache, dizziness, lightheadedness, nausea, or vomiting.He is able to follow commands with left facial droop, left upper extremity flaccid, and left lower extremity weakness. According to the family, the speech is much clearer than yesterday. He is able to tolerate po intake with some drooling.He had episode of elevated blood pressure which anti- hypertensive meds. was given. Latest BP-180/90. Objective - Vital Signs/Intake and Output Vital Signs (last 24 hours): Temp Pulse Resp BP Pulse Ox 97.4 F L 77 20 180/90 H 96 07/09/17 06:00 07/09/17 12:56 07/09/17 06:00 07/09/17 12:56 07/09/17 06:00 Intake and Output: 07/09/17 07/09/17 06:59 18:59 Intake Total 0 Output Total 500 Balance -500 - Medications Medications: Current Medications Acetaminophen (Tylenol 325mg Tab) 650 mg PO Q4H PRN PRN Reason: Pain, Mild (1-3) Amlodipine Besylate (Norvasc) 10 mg PO DAILY [facility] Aspirin (Aspirin Chewable) 81 mg PO DAILY [facility] Last Admin: 07/09/17 09:02 Dose: 81 mg Atorvastatin Calcium (Lipitor) 40 mg PO DIN [facility] Last Admin: 07/08/17 18:17 Dose: 40 mg Clopidogrel Bisulfate (Plavix) 75 mg PO DAILY [facility] Last Admin: 07/09/17 09:03 Dose: 75 mg Hydralazine HCl (Apresoline) 10 mg PO QID PRN PRN Reason: for sbp>170 Last Admin: 07/09/17 12:56 Dose: 10 mg Insulin Human Regular (Humulin R Med) 0 units SC ACHS [facility] PRN Reason: Protocol Last Admin: 07/09/17 12:04 Dose: 1 units Multi-Ingredient Cream (Hydrocerin Cream) 0 ea TOP Q4H [facility] Last Admin: 07/09/17 12:18 Dose: 1 applic Nystatin (Nystop Topical Powder) 0 gm TOP DAILY [facility] Last Admin: 07/09/17 09:13 Dose: 1 applic Pantoprazole Sodium (Protonix Inj) 40 mg IVP DAILY [facility] Last Admin: 07/09/17 09:03 Dose: 40 mg Tramadol HCl (Ultram) 50 mg PO TID PRN PRN Reason: Pain, moderate (4-7) Last Admin: 07/08/17 16:17 Dose: 50 mg Valsartan (Diovan) 320 mg PO DAILY [facility] Last Admin: 07/09/17 09:02 Dose: 320 mg - Labs Labs: 07/09/17 06:30 07/09/17 06:30 PT 12.8 SECONDS (9.4-12.5) H 07/07/17 19:59 INR 1.12 (0.93-1.08) H 07/07/17 19:59 APTT 31.3 Seconds (25.1-36.5) 07/07/17 19:59 - Constitutional Appears: No Acute Distress - Head Exam Head Exam: NORMAL INSPECTION - Neurological Exam Neurological Exam: Alert, Awake Neuro motor strength exam: Left Upper Extremity: 0, Right Upper Extremity: 4, Left Lower Extremity: 2/1, Right Lower Extremity: 4 Additional comments: He is awake, alert, with periods of sleepiness. follows commands. Assessment and Plan (1) Acute ischemic stroke Assessment & Plan: Case discussed with Dr. Rivera, continue all current medical, physical, occupational, and speech therapies. Recommend blood pressure and glycemic control. Recommend acute rehab for discharge planning. With his sleepiness/ difficulty staying awake, recommends Amantadine 100 mg PO daily. Status: Acute
--- NOTE | 2017-07-09 15:33 | CT ---
PROCEDURE: CT Abdomen and Pelvis without intravenous contrast HISTORY: nephrolithiasis COMPARISON: None. TECHNIQUE: Without contrast. Contrast Dose: Radiation dose: Total exam DLP = Total exam DLP = 1144 mGy-cm. This CT exam was performed using one or more of the following dose reduction techniques: Automated exposure control, adjustment of the mA and/or kV according to patient size, and/or use of iterative reconstruction technique. FINDINGS: LOWER THORAX: Unremarkable. LIVER: Unremarkable. No gross lesion or ductal dilatation. GALLBLADDER AND BILE DUCTS: There is dense sludge within the gallbladder PANCREAS: Unremarkable. No gross lesion or ductal dilatation. SPLEEN: Unremarkable. ADRENALS: Unremarkable. No mass. KIDNEYS AND URETERS: Unremarkable. No hydronephrosis. No solid mass. VASCULATURE: Unremarkable. No aortic aneurysm. BOWEL: Unremarkable. No obstruction. No gross mural thickening. APPENDIX: Unremarkable. Normal appendix. PERITONEUM: Unremarkable. No free fluid. No free air. LYMPH NODES: Unremarkable. No enlarged lymph nodes. BLADDER: More catheter in the bladder. Mural thickening. REPRODUCTIVE: Unremarkable. BONES: No acute fracture. OTHER FINDINGS: None. IMPRESSION: No acute findings
--- NOTE | 2017-07-09 16:23 | PN ---
DATE: 07/09/2017 LOCATION: The patient is in room 371, bed 2. REASON FOR CONSULTATION AND FOLLOWUP: Cardiac evaluation, hypertension, CVA, coronary artery disease. BRIEF CLINICAL HISTORY: The patient is known hypertensive and coronary artery disease, was admitted with sudden onset right-sided facial droop, was drinking fluid when he started choking, felt weak, and fell down and the patient felt weakness of the left-sided arm and leg. The patient had difficulty in speech. Now today, the patient's speech has shown improvement. The patient denies any chest pain, shortness of breath, or palpitation. OBJECTIVE: VITAL SIGNS: Blood pressure 180/90, this morning blood pressure is 219/91, respirations 20, pulse 77, and temperature 97.4. During the night, the patient's heart rate went down to 45. The patient was asymptomatic. HEENT: Head is normocephalic. Eyes: Pupil normal. Conjunctivae normal. Nose and throat normal. NECK: JVP low. Carotid equal. THORAX: AP diameter normal. LUNGS: Clear. CARDIOVASCULAR: S1, S2. ABDOMEN: Soft. No tenderness. No organomegaly. Bowel sound normal. EXTREMITIES: No clubbing. No cyanosis. LABORATORY DATA: WBC 4.8, hemoglobin 14.6, hematocrit 42.8, platelets 160. Sodium 141, potassium 4. BUN 17, creatinine 0.9. Random sugar 193. AST, ALT, total protein, and albumin normal. Brain MRA shows acute infarct in the right basal ganglia and katz radiata, infarct measures 10 x 30 mm. DIAGNOSES: Acute cerebrovascular accident with still expressive aphasia, with improvement of the aphasia and also left-sided weakness has shown improvement, right-sided facial droop also shows improvement. Diabetes, hypertension, hyperlipidemia, cardiomyopathy. Last stress test in 12/2016, showed ejection fraction of 38%. PLAN: The patient received Diovan 320 mg p.o. today, also received amlodipine 5 mg today. We will give additional amlodipine 5 mg today, total will be 10 mg. Starting tomorrow, we will get amlodipine 10 mg daily. The patient is on hydralazine 10 mg p.o. 4 times a day p.r.n. for high blood pressure, Protonix 40 mg IV daily, Plavix 75 mg p.o. daily, aspirin 81 mg p.o. daily, Lipitor 40 mg daily. The patient is being followed by Neurology. The patient had echocardiogram on 07/08/2017, left ventricle size normal, LV wall thickness normal, left ventricle function is normal with LV ejection fraction 54%, grade 1 abnormal relaxation pattern, intraatrial septum is intact with no evidence of atrial septal defect. We will follow. Nicola Simon MD
[2017-07-09 18:17] LABS: PH,URINE 6.5 (4.7-8.0); URINE APPEARANCE CLEAR (CLEAR); URINE BILIRUBIN NEGATIVE (NEGATIVE); URINE BLOOD LARGE (NEGATIVE); URINE COLOR YELLOW (YELLOW); URINE GLUCOSE (UA) 500 mg/dL (NEGATIVE); URINE LEUKOCYTE ESTERASE TRACE Leu/uL (NEGATIVE); URINE PROTEIN 30 mg/dL (<30 mg/dL); URINE UROBILINOGEN 0.2 E.U./dL (<1 E.U./dL)
[2017-07-09 18:30] LABS: URINE BACTERIA TRACE (NEG); URINE EPITHELIAL CELLS 0 - 2 /hpf (0-5); URINE RBC TNTC /hpf (0-2)
[2017-07-10] MEDS: Hydrocerin(120 gm) TOP SCH ×7 (04:00→23:45)
[2017-07-10 07:21] LABS: HEMOGLOBIN 14.9 g/dL (14.0-18.0); MEAN CELL VOLUME 92.1 fl (80.0-105.0); MEAN CORPUSCULAR HEMOGLOBIN 32.7 pg (25.0-35.0); MEAN CORPUSCULAR HGB CONC 35.6 g/dl (31.0-37.0); MEAN PLATELET VOLUME 10.9 fl (7.0-11.0); RBC 4.55 10^6/uL (3.5-6.1); RED CELL DISTRIBUTION WIDTH 13.4 % (11.5-14.5)
[2017-07-10] MEDS: Insulin Reg-MEDIUM-Coverage SC SCH ×4 (08:02→22:30)
[2017-07-10 08:04] LABS: ALB/GLOB RATIO 1.2 (1.1-1.8); ALBUMIN 3.6 g/dL (3.0-4.8); ALT/SGPT 31 U/L (7-56); AST/SGOT 25 U/L (17-59); BLOOD UREA NITROGEN 15 mg/dL (7-21); CALCIUM 9.3 mg/dL (8.4-10.5); GFR AFRICAN-AMERICAN > 60; GFR NON-AFRICAN AMERICAN > 60
[2017-07-10] MEDS: Nystatin 100,000 Units/gm Topical Pow(15 gm) TOP SCH (09:32)
--- NOTE | 2017-07-10 12:27 | CP.PCM.PN ---
Subjective - Date & Time of Evaluation Date of Evaluation: 07/10/17 Time of Evaluation: 12:26 - Subjective Subjective: Mr. Warner was seen and examined at the bedside. He is alert, oriented with periods of sleepiness. He denies any headache, dizziness, lightheadedness, nausea, or vomiting.According to the , he is more awake and alert today in comparison from previous days.He is able to follow commands with left facial droop, left upper extremity weakness with very minimal horizontal movement with no vertical movement.He remains with left lower extremity weakness. According to the family, the speech is getting more clearer. There was no untoward events overnight. Objective - Vital Signs/Intake and Output Vital Signs (last 24 hours): Temp Pulse Resp BP Pulse Ox 98.4 F 80 20 153/86 H 97 07/10/17 08:24 07/10/17 10:53 07/10/17 08:24 07/10/17 10:53 07/10/17 08:36 Intake and Output: 07/10/17 07/10/17 06:59 18:59 Intake Total 660 0 Output Total 1200 650 Balance -540 -650 - Medications Medications: Current Medications Acetaminophen (Tylenol 325mg Tab) 650 mg PO Q4H PRN PRN Reason: Pain, Mild (1-3) Amantadine HCl (Amantadine 100 Mg Cap) 100 mg PO DAILY [facility] Last Admin: 07/10/17 09:31 Dose: 100 mg Amlodipine Besylate (Norvasc) 10 mg PO DAILY [facility] Last Admin: 07/10/17 09:30 Dose: 10 mg Aspirin (Aspirin Chewable) 81 mg PO DAILY [facility] Last Admin: 07/10/17 09:31 Dose: 81 mg Atorvastatin Calcium (Lipitor) 40 mg PO DIN [facility] Last Admin: 07/09/17 17:13 Dose: 40 mg Clopidogrel Bisulfate (Plavix) 75 mg PO DAILY [facility] Last Admin: 07/10/17 09:30 Dose: 75 mg Hydralazine HCl (Apresoline) 25 mg PO QID [facility] Last Admin: 07/10/17 09:31 Dose: 25 mg Insulin Human Regular (Humulin R Med) 0 units SC ACHS [facility] PRN Reason: Protocol Last Admin: 07/10/17 08:02 Dose: 1 units Multi-Ingredient Cream (Hydrocerin Cream) 0 ea TOP Q4H [facility] Last Admin: 07/10/17 09:32 Dose: 1 applic Nystatin (Nystop Topical Powder) 0 gm TOP DAILY [facility] Last Admin: 07/10/17 09:32 Dose: 1 applic Pantoprazole Sodium (Protonix Inj) 40 mg IVP DAILY [facility] Last Admin: 07/10/17 09:31 Dose: 40 mg Tramadol HCl (Ultram) 50 mg PO TID PRN PRN Reason: Pain, moderate (4-7) Last Admin: 07/08/17 16:17 Dose: 50 mg Valsartan (Diovan) 320 mg PO DAILY [facility] Last Admin: 07/10/17 09:30 Dose: 320 mg - Labs Labs: 07/10/17 07:00 07/10/17 07:00 PT 12.8 SECONDS (9.4-12.5) H 07/07/17 19:59 INR 1.12 (0.93-1.08) H 07/07/17 19:59 APTT 31.3 Seconds (25.1-36.5) 07/07/17 19:59 - Constitutional Appears: No Acute Distress - Head Exam Head Exam: NORMAL INSPECTION - Neurological Exam Neurological Exam: Alert, Awake, Oriented x3 Neuro motor strength exam: Left Upper Extremity: 2/1, Right Upper Extremity: 5, Left Lower Extremity: 3, Right Lower Extremity: 5 Additional comments: He is alert, able too follow simple commands. Sensation is intact. Assessment and Plan (1) Acute ischemic stroke Assessment & Plan: Case discussed with Dr. Rivera, continue all current medical, physical, occupational, and speech therapies. Recommend acute rehab for discharge planning , blood pressure and glycemic control. If patient mental status deteriorate, to repeat CT scan of the head without contrast. Status: Acute
--- NOTE | 2017-07-10 16:41 | CP.PCM.PN ---
<Jordan Mccoy Sherry - Last Filed: 07/10/17 16:36> Subjective - Date & Time of Evaluation Date of Evaluation: 07/10/17 Time of Evaluation: 16:36 - Subjective Subjective: Medicine progress note: Dr. Josh Ramirez Patient seen and examined at bedside. Patient's is concerned about his hematuria yesterday. Other than that, no new complaints Objective - Vital Signs/Intake and Output Vital Signs (last 24 hours): Temp Pulse Resp BP Pulse Ox 98.1 F 94 H 18 163/97 H 97 07/10/17 12:00 07/10/17 14:19 07/10/17 12:00 07/10/17 14:19 07/10/17 08:36 Intake and Output: 07/10/17 07/10/17 06:59 18:59 Intake Total 660 0 Output Total 1200 650 Balance -540 -650 - Medications Medications: Current Medications Acetaminophen (Tylenol 325mg Tab) 650 mg PO Q4H PRN PRN Reason: Pain, Mild (1-3) Amantadine HCl (Amantadine 100 Mg Cap) 100 mg PO DAILY [facility] Last Admin: 07/10/17 09:31 Dose: 100 mg Amlodipine Besylate (Norvasc) 10 mg PO DAILY [facility] Last Admin: 07/10/17 09:30 Dose: 10 mg Aspirin (Aspirin Chewable) 81 mg PO DAILY [facility] Last Admin: 07/10/17 09:31 Dose: 81 mg Atorvastatin Calcium (Lipitor) 40 mg PO DIN [facility] Last Admin: 07/09/17 17:13 Dose: 40 mg Carvedilol (Coreg) 3.125 mg PO BID [facility] Clopidogrel Bisulfate (Plavix) 75 mg PO DAILY [facility] Last Admin: 07/10/17 09:30 Dose: 75 mg Hydralazine HCl (Apresoline) 25 mg PO QID [facility] Last Admin: 07/10/17 14:19 Dose: 25 mg Insulin Human Regular (Humulin R Med) 0 units SC ACHS [facility] PRN Reason: Protocol Last Admin: 07/10/17 12:33 Dose: 1 units Multi-Ingredient Cream (Hydrocerin Cream) 0 ea TOP Q4H [facility] Last Admin: 07/10/17 14:19 Dose: 1 applic Nystatin (Nystop Topical Powder) 0 gm TOP DAILY [facility] Last Admin: 03/30/18 09:32 Dose: 1 applic Pantoprazole Sodium (Protonix Ec Tab) 40 mg PO ACB [facility] Tramadol HCl (Ultram) 50 mg PO TID PRN PRN Reason: Pain, moderate (4-7) Last Admin: 07/08/17 16:17 Dose: 50 mg Valsartan (Diovan) 320 mg PO DAILY [facility] Last Admin: 07/10/17 09:30 Dose: 320 mg - Labs Labs: 07/10/17 07:00 07/10/17 07:00 PT 12.8 SECONDS (9.4-12.5) H 07/07/17 19:59 INR 1.12 (0.93-1.08) H 07/07/17 19:59 APTT 31.3 Seconds (25.1-36.5) 07/07/17 19:59 - Constitutional Appears: Well - Head Exam Head Exam: ATRAUMATIC, NORMAL INSPECTION, NORMOCEPHALIC - Eye Exam Eye Exam: EOMI, Normal appearance, PERRL Pupil Exam: NORMAL ACCOMODATION, PERRL - ENT Exam ENT Exam: Mucous Membranes Moist, Normal Exam - Neck Exam Neck Exam: Full ROM, Normal Inspection. absent: Lymphadenopathy - Respiratory Exam Respiratory Exam: Clear to Ausculation Bilateral, NORMAL BREATHING PATTERN - Cardiovascular Exam Cardiovascular Exam: REGULAR RHYTHM, +S1, +S2. absent: Murmur - GI/Abdominal Exam GI & Abdominal Exam: Soft, Normal Bowel Sounds. absent: Tenderness - Extremities Exam Extremities Exam: Full ROM, Normal Capillary Refill, Normal Inspection. absent : Joint Swelling, Pedal Edema - Back Exam Back Exam: NORMAL INSPECTION - Neurological Exam Neurological Exam: Alert, Awake, CN II-XII Intact, Normal Gait, Oriented x3 - Psychiatric Exam Psychiatric exam: Normal Affect, Normal Mood - Skin Skin Exam: Dry, Intact, Normal Color, Warm Assessment and Plan - Assessment and Plan (Free Text) Assessment: 71 yo M with PMH HTN, peripheral edema, and stroke admitted for acute ischemic stroke. Plan: Acute ischemic stroke - Patient evaluated by Neurologist on arrival, not a candidate for tPA - Head CT showed no acute findings - CTA Head/Neck showed findings suspicious for segmental occlusion or a tight stenosis at the origin of an M2 branch of the R MCA, otherwise no acute abnormality - ASA 325 given in ED - Swallow eval passed, liquid diet - Aspiration and fall precautions - Neuro checks - Neurology consulted MRI of brain without contrast: acute basal ganglia infarct Echo with bubble study Dual antiplatelet therapy Lipitor 40 mg daily HOB 30 degrees NS at 100 HgbA1c, Lipid panel, B12, folate, Vitamin D ordered PT/OT eval and treat: patient was able to be out of bed and take a few steps today. awaiting [facility] - Incentive spirometry Right Hip Pain and Back pain - XR of Hips negative - XR of thoracic spine shows ankylosing spondylosis but no acute fracture - Tylenol for pain CVA Tenderness - Patient had hematuria this am when seen at bedside; but CVA tenderness has resolved - CT Abdomen Pelvis: negative - UA, Urine culture: Both negative (trace LE, but 1-3 WBC's) HTN - No longer needs to have permissive hypertension, control rate of decrease - Continue home medications: Hydralazine, Norvasc, Diovan; Norvasc increased to 10 per Cardio, Hydralazine increased to 25 Peripheral edema - Hold home Lasix to avoid drop in BP GI/DVT Prophylaxis - Protonix - SCDs <Иван Ramirez - Last Filed: 07/12/17 15:46> Objective - Vital Signs/Intake and Output Vital Signs (last 24 hours): Temp Pulse Resp BP Pulse Ox 97.2 F L 53 L 16 147/77 99 07/12/17 12:00 07/12/17 12:00 07/12/17 12:00 07/12/17 14:57 07/12/17 06:00 Intake and Output: 07/12/17 07/12/17 06:59 18:59 Intake Total 300 Output Total 700 Balance -400 - Medications Medications: Current Medications Acetaminophen (Tylenol 325mg Tab) 650 mg PO Q4H PRN PRN Reason: Pain, Mild (1-3) Amlodipine Besylate (Norvasc) 10 mg PO DAILY [facility] Last Admin: 07/12/17 09:36 Dose: 10 mg Aspirin (Aspirin Chewable) 81 mg PO DAILY [facility] Last Admin: 07/12/17 09:36 Dose: 81 mg Atorvastatin Calcium (Lipitor) 40 mg PO DIN [facility] Last Admin: 07/11/17 18:22 Dose: 40 mg Carvedilol (Coreg) 6.25 mg PO BID [facility] Clonidine HCl (Catapres) 0.2 mg PO BID PRN PRN Reason: Other Clopidogrel Bisulfate (Plavix) 75 mg PO DAILY [facility] Last Admin: 07/12/17 09:36 Dose: 75 mg Hydralazine HCl (Apresoline) 50 mg PO TID [facility] Last Admin: 07/12/17 14:57 Dose: 50 mg Insulin Human Regular (Humulin R Med) 0 units SC ACHS [facility] PRN Reason: Protocol Last Admin: 07/12/17 12:55 Dose: 1 units Metformin HCl (Glucophage) 500 mg PO BID [facility] Multi-Ingredient Cream (Hydrocerin Cream) 0 ea TOP Q4H [facility] Last Admin: 07/12/17 15:29 Dose: Not Given Nystatin (Nystop Topical Powder) 0 gm TOP DAILY [facility] Last Admin: 07/12/17 09:37 Dose: 1 applic Pantoprazole Sodium (Protonix Ec Tab) 40 mg PO ACB [facility] Last Admin: 07/12/17 07:35 Dose: 40 mg Polyethylene Glycol (Miralax) 17 gm PO BID [facility] Tramadol HCl (Ultram) 50 mg PO TID PRN PRN Reason: Pain, moderate (4-7) Last Admin: 07/08/17 16:17 Dose: 50 mg Valsartan (Diovan) 320 mg PO DAILY [facility] Last Admin: 07/12/17 09:35 Dose: 320 mg - Labs Labs: 07/12/17 06:00 07/12/17 06:00 PT 12.8 SECONDS (9.4-12.5) H 07/07/17 19:59 INR 1.12 (0.93-1.08) H 07/07/17 19:59 APTT 31.3 Seconds (25.1-36.5) 07/07/17 19:59 Attending/Attestation - Attestation I have personally seen and examined this patient.: Yes I have fully participated in the care of the patient.: Yes I have reviewed all pertinent clinical information, including history, physical exam and plan: Yes Notes (Text): I have seen and examined the patient at bedside. Agree with the note above with the following additions/ exceptions: Briefly this is 71 year old male with history of HTN, peripheral edema, lacunar infarct with no residual deficits, obesity, non compliance with medications who was admitted for acute ischemic stroke. He was not a candidate for tPA.MRI brain revealed acute basal ganglia infarct. Echo with bubble study pending. Continue dual antiplatelet therapy including aspirin and plavix. Will continue lipitor. Encourage incentive spirometry. Hematuria has resolved. CT abdomen was unrmarkable. Thoracic spine xray revealed Ankyolosing spondylitis.Cardiology consult appreciated. Will adjust antihypertensive medications. PT recommended [facility]. Upon discharge patient will follow up with Dr Hope. Dr Иван Ramirez
--- NOTE | 2017-07-10 17:39 | PN ---
DATE: 07/10/2017 LOCATION: Patient in room 371, bed 2. REASON FOR CONSULTATION AND FOLLOWUP: Hypertension, CVA, coronary artery disease. SUBJECTIVE: The patient lying flat in bed, without chest pain, shortness of breath, palpitations. His left side still weak. His speech, however, has improved. Patient was admitted with acute cerebrovascular accident. PHYSICAL EXAMINATION: VITAL SIGNS: Blood pressure 153/86, respirations 18, pulse 80, patient afebrile. HEENT: Head is normocephalic. Eyes: Pupils normal. Conjunctivae normal. Nose and throat normal. NECK: JVP low. Carotids equal. THORAX: AP diameter normal. LUNGS: Clear. CARDIOVASCULAR: S1, S2. ABDOMEN: Soft. No tenderness, no organomegaly. Bowel sounds normal. EXTREMITIES: No clubbing, no cyanosis. LABORATORY DATA: WBC 10, hemoglobin 14.9, hematocrit 41.9, platelets 195. Sodium 139, potassium 3.8, BUN 15, creatinine 0.8, random sugar 175, calcium 9.3, AST 25, ALT 31, total protein and albumin normal. DIAGNOSES: Acute cerebrovascular accident with expressive aphasia which is improving, left-sided weakness present, hypertension, right-sided facial droop also in improvement, diabetes, hyperlipidemia, cardiomyopathy, last stress test in 12/2016 showed ejection fraction of 38%. Echo on 07/08/2017 showed normal left ventricular size, left ventricular wall thickness normal, left ventricular function normal, his left ventricular ejection fraction 54%, grade 1 abnormal relaxation pattern, intraatrial septum intact with no evidence of atrial septal defect. PLAN: Adding hydralazine 25 mg p.o. 4 times a day today because blood pressure was remaining high, aspirin 81 mg daily, Coreg 3.125 b.i.d., Diovan 320 p.o. daily, Lipitor 40 mg p.o. daily, amlodipine 10 mg p.o. daily, Plavix 75 mg p.o. daily, Protonix 40 daily. We will continue present therapy and we will follow. Nicola Simon MD
--- NOTE | 2017-07-11 00:14 | CON ---
ULTATION: Uncontrolled hypertension, CVA. HISTORY OF PRESENTING ILLNESS: A 71-year-old male previously unknown to me, was brought to the emergency room on the because of sudden onset of difficulty swallowing, weakness of the left side of the body. He also reported facial droop at the time of presentation. He continued to have facial droop and dysarthria in the emergency room. CT scan of his head initially showed chronic lacunar infarct, but no acute findings. His blood pressure was 230 at the time of presentation. The patient was not given TPA because his symptoms had started more than 3 hours prior to presentation. Subsequently, he had a brain MRI done, which showed an acute infarct in the right basal ganglia and katz radiata. Consultation is requested for elevated blood pressure. His pressure has been ranging anywhere between 201/75 to 163/97. PAST MEDICAL AND SURGICAL HISTORY: Morbid obesity, NIDDM, hypertension, nonobstructive CAD, prior lacunar stroke. FAMILY HISTORY: Noncontributory. SOCIAL HISTORY No smoking, no alcohol use, no IV drug abuse. ALLERGIES: NO KNOWN DRUG ALLERGIES. MEDICATIONS AT HOME: Had been valsartan 320, Coreg CR 20 mg daily. REVIEW OF SYSTEMS: Complains of weakness in the left side of his body. Rest unremarkable. PHYSICAL EXAMINATION GENERAL: Morbidly obese elderly male sitting in chair. VITAL SIGNS: Blood pressure 163/97, heart rate 94, respiratory rate 18, temperature 98.1. HEENT: Normocephalic, atraumatic, positive pallor. NECK: Supple, no JVD. LUNGS: Bilateral equal air entry, bilateral equal expansion, no rales. CARDIAC: S1, S2. Regular rate and rhythm. No murmur, no rub. ABDOMEN: Obese, distended, soft, nontender, bowel sounds present. EXTREMITIES: Chronic stasis changes, edema. CURRENT MEDICATIONS: Amantadine 100, Apresoline 25 q.i.d., aspirin 81, Diovan 320, Lipitor 40, amlodipine 10, Plavix 75, Protonix 40, Tylenol 650, Ultram. LABORATORY DATA: WBC 7, hemoglobin 14.9, hematocrit 42, platelets 195. Sodium 139, potassium 3.8, chloride 105, CO2 25, BUN 15, creatinine 0.8, glucose 160, calcium 9.3, total bili 1.0, AST 25, ALT 31, albumin 3.6. ASSESSMENT: 1. Acute cerebrovascular accident, with left hemiparesis. 2. Severe hypertension. 3. Morbid obesity. 4. Borderline diabetes. 5. Chronic lower extremity edema. PLAN: 1. Long discussion with family members at bedside. Currently in the setting of acute stroke, would except higher blood pressure of 160/90. Discussed with the patient and family that he will need to have his blood pressure treated and monitored as outpatient. 2. The patient was on Coreg at home, okay to restart Coreg CR 20 mg daily. 3. Physical therapy. 4. Consider treatment of diabetes. 5. Need outpatient followup. Thank you for the courtesy of this consultation. We will follow this patient with you. Alysia Billy MD
[2017-07-11] MEDS: Hydrocerin(120 gm) TOP SCH ×6 (03:30→22:31)
[2017-07-11 07:39] LABS: HEMOGLOBIN 15.7 g/dL (14.0-18.0); MEAN CELL VOLUME 92.6 fl (80.0-105.0); MEAN CORPUSCULAR HGB CONC 35.6 g/dl (31.0-37.0); MEAN PLATELET VOLUME 10.6 fl (7.0-11.0); RBC 4.76 10^6/uL (3.5-6.1); RED CELL DISTRIBUTION WIDTH 13.4 % (11.5-14.5)
[2017-07-11 07:56] LABS: ALB/GLOB RATIO 1.2 (1.1-1.8); ALBUMIN 3.7 g/dL (3.0-4.8); ALT/SGPT 34 U/L (7-56); AST/SGOT 22 U/L (17-59); BLOOD UREA NITROGEN 17 mg/dL (7-21); CALCIUM 9.2 mg/dL (8.4-10.5); GFR AFRICAN-AMERICAN > 60; GFR NON-AFRICAN AMERICAN > 60
[2017-07-11] MEDS: Pantoprazole 40 mg EC Tab PO SCH (07:58)
[2017-07-11] MEDS: Insulin Reg-MEDIUM-Coverage SC SCH ×4 (08:05→21:30)
[2017-07-11] MEDS: Nystatin 100,000 Units/gm Topical Pow(15 gm) TOP SCH (12:21)
--- NOTE | 2017-07-11 15:36 | CP.PCM.PN ---
<Jordan Mccoy Sherry - Last Filed: 07/11/17 15:33> Subjective - Date & Time of Evaluation Date of Evaluation: 07/11/17 Time of Evaluation: 15:33 - Subjective Subjective: Medicine progress note: Dr. Josh Ramirez Patient seen and examined at bedside. Patient has been getting hypertensive overnight, as well as last night. Patient denies any new complaints, at bedside is concerned about patient's sunny colored urine, but reassured her that the patient does not have an infection. Patient is less dysarthric and is able to communicate effectively today. Is awaiting placement at [facility] Objective - Vital Signs/Intake and Output Vital Signs (last 24 hours): Temp Pulse Resp BP Pulse Ox 98.2 F 80 20 162/89 H 97 07/11/17 12:00 07/11/17 12:00 07/11/17 12:00 07/11/17 14:40 07/11/17 00:01 Intake and Output: 07/11/17 07/11/17 06:59 18:59 Intake Total 400 Output Total 1100 Balance -700 - Medications Medications: Current Medications Acetaminophen (Tylenol 325mg Tab) 650 mg PO Q4H PRN PRN Reason: Pain, Mild (1-3) Amlodipine Besylate (Norvasc) 10 mg PO DAILY [facility] Last Admin: 07/11/17 10:58 Dose: 10 mg Aspirin (Aspirin Chewable) 81 mg PO DAILY [facility] Last Admin: 07/11/17 10:58 Dose: 81 mg Atorvastatin Calcium (Lipitor) 40 mg PO DIN [facility] Last Admin: 07/10/17 17:23 Dose: 40 mg Carvedilol (Coreg) 3.125 mg PO BID [facility] Last Admin: 07/11/17 10:58 Dose: 3.125 mg Clonidine HCl (Catapres) 0.1 mg PO BID [facility] Clopidogrel Bisulfate (Plavix) 75 mg PO DAILY [facility] Last Admin: 07/11/17 10:58 Dose: 75 mg Hydralazine HCl (Apresoline) 50 mg PO TID [facility] Last Admin: 07/11/17 14:40 Dose: 50 mg Insulin Human Regular (Humulin R Med) 0 units SC ACHS [facility] PRN Reason: Protocol Last Admin: 07/11/17 12:12 Dose: 3 units Multi-Ingredient Cream (Hydrocerin Cream) 0 ea TOP Q4H [facility] Last Admin: 07/11/17 14:45 Dose: 1 applic Nystatin (Nystop Topical Powder) 0 gm TOP DAILY [facility] Last Admin: 07/11/17 12:21 Dose: 1 applic Pantoprazole Sodium (Protonix Ec Tab) 40 mg PO ACB [facility] Last Admin: 07/11/17 07:58 Dose: 40 mg Tramadol HCl (Ultram) 50 mg PO TID PRN PRN Reason: Pain, moderate (4-7) Last Admin: 07/08/17 16:17 Dose: 50 mg Valsartan (Diovan) 320 mg PO DAILY [facility] Last Admin: 07/11/17 10:58 Dose: 320 mg - Labs Labs: 07/11/17 07:00 07/11/17 07:00 PT 12.8 SECONDS (9.4-12.5) H 07/07/17 19:59 INR 1.12 (0.93-1.08) H 07/07/17 19:59 APTT 31.3 Seconds (25.1-36.5) 07/07/17 19:59 - Constitutional Appears: Well - Head Exam Head Exam: ATRAUMATIC, NORMAL INSPECTION, NORMOCEPHALIC - Eye Exam Eye Exam: EOMI, Normal appearance, PERRL Pupil Exam: NORMAL ACCOMODATION, PERRL - ENT Exam ENT Exam: Mucous Membranes Moist, Normal Exam - Neck Exam Neck Exam: Full ROM, Normal Inspection. absent: Lymphadenopathy - Respiratory Exam Respiratory Exam: Clear to Ausculation Bilateral, NORMAL BREATHING PATTERN - Cardiovascular Exam Cardiovascular Exam: REGULAR RHYTHM, +S1, +S2. absent: Murmur - GI/Abdominal Exam GI & Abdominal Exam: Soft, Normal Bowel Sounds. absent: Tenderness - Extremities Exam Extremities Exam: Full ROM, Normal Capillary Refill, Normal Inspection. absent : Joint Swelling, Pedal Edema - Back Exam Back Exam: NORMAL INSPECTION - Neurological Exam Neurological Exam: Alert, Awake, CN II-XII Intact, Normal Gait, Oriented x3 - Psychiatric Exam Psychiatric exam: Normal Affect, Normal Mood - Skin Skin Exam: Dry, Intact, Normal Color, Warm Assessment and Plan - Assessment and Plan (Free Text) Assessment: 71 yo M with PMH HTN, peripheral edema, and stroke admitted for acute ischemic stroke. Plan: Acute ischemic stroke - Patient evaluated by Neurologist on arrival, not a candidate for tPA - Head CT showed no acute findings - CTA Head/Neck showed findings suspicious for segmental occlusion or a tight stenosis at the origin of an M2 branch of the R MCA, otherwise no acute abnormality - ASA 325 given in ED - Swallow eval passed, liquid diet - Aspiration and fall precautions - Neuro checks - Neurology consulted MRI of brain without contrast: acute basal ganglia infarct Echo with bubble study: grade I abnormal relaxation Dual antiplatelet therapy Lipitor 40 mg daily HOB 30 degrees NS at 100 HgbA1c, Lipid panel, B12, folate, Vitamin D ordered PT/OT eval and treat: patient was able to be out of bed and take a few steps today. awaiting [facility] - Incentive spirometry Right Hip Pain and Back pain - XR of Hips negative - XR of thoracic spine shows ankylosing spondylosis but no acute fracture - Tylenol for pain CVA Tenderness - Patient had hematuria this am when seen at bedside; but CVA tenderness has resolved - CT Abdomen Pelvis: negative - UA, Urine culture: Both negative (trace LE, but 1-3 WBC's) HTN - No longer needs to have permissive hypertension, control rate of decrease - Continue home medications: Hydralazine, Norvasc, Diovan; Norvasc increased to 10 per Cardio, Hydralazine increased to 50 - Nephro Consult: Dr. Billy Added on coreg - Cardio consult: Dr. Simon Added on clonidine Peripheral edema - Hold home Lasix to avoid drop in BP GI/DVT Prophylaxis - Protonix - SCDs Dispo: patient awaiting placement at [facility] <Иван Ramirez B - Last Filed: 07/12/17 15:49> Objective - Vital Signs/Intake and Output Vital Signs (last 24 hours): Temp Pulse Resp BP Pulse Ox 97.2 F L 53 L 16 147/77 99 07/12/17 12:00 07/12/17 12:00 07/12/17 12:00 07/12/17 14:57 07/12/17 06:00 Intake and Output: 07/12/17 07/12/17 06:59 18:59 Intake Total 300 Output Total 700 Balance -400 - Medications Medications: Current Medications Acetaminophen (Tylenol 325mg Tab) 650 mg PO Q4H PRN PRN Reason: Pain, Mild (1-3) Amlodipine Besylate (Norvasc) 10 mg PO DAILY [facility] Last Admin: 07/12/17 09:36 Dose: 10 mg Aspirin (Aspirin Chewable) 81 mg PO DAILY [facility] Last Admin: 07/12/17 09:36 Dose: 81 mg Atorvastatin Calcium (Lipitor) 40 mg PO DIN [facility] Last Admin: 07/11/17 18:22 Dose: 40 mg Carvedilol (Coreg) 6.25 mg PO BID [facility] Clonidine HCl (Catapres) 0.2 mg PO BID PRN PRN Reason: Other Clopidogrel Bisulfate (Plavix) 75 mg PO DAILY [facility] Last Admin: 07/12/17 09:36 Dose: 75 mg Hydralazine HCl (Apresoline) 50 mg PO TID [facility] Last Admin: 07/12/17 14:57 Dose: 50 mg Insulin Human Regular (Humulin R Med) 0 units SC ACHS [facility] PRN Reason: Protocol Last Admin: 07/12/17 12:55 Dose: 1 units Metformin HCl (Glucophage) 500 mg PO BID [facility] Multi-Ingredient Cream (Hydrocerin Cream) 0 ea TOP Q4H [facility] Last Admin: 07/12/17 15:29 Dose: Not Given Nystatin (Nystop Topical Powder) 0 gm TOP DAILY [facility] Last Admin: 07/12/17 09:37 Dose: 1 applic Pantoprazole Sodium (Protonix Ec Tab) 40 mg PO ACB [facility] Last Admin: 07/12/17 07:35 Dose: 40 mg Polyethylene Glycol (Miralax) 17 gm PO BID [facility] Tramadol HCl (Ultram) 50 mg PO TID PRN PRN Reason: Pain, moderate (4-7) Last Admin: 07/08/17 16:17 Dose: 50 mg Valsartan (Diovan) 320 mg PO DAILY [facility] Last Admin: 07/12/17 09:35 Dose: 320 mg - Labs Labs: 07/12/17 06:00 07/12/17 06:00 PT 12.8 SECONDS (9.4-12.5) H 07/07/17 19:59 INR 1.12 (0.93-1.08) H 07/07/17 19:59 APTT 31.3 Seconds (25.1-36.5) 07/07/17 19:59 Attending/Attestation - Attestation I have personally seen and examined this patient.: Yes I have fully participated in the care of the patient.: Yes I have reviewed all pertinent clinical information, including history, physical exam and plan: Yes Notes (Text): I have seen and examined the patient at bedside. Agree with the note above with the following additions/ exceptions: Briefly this is 71 year old male with history of HTN, peripheral edema, lacunar infarct with no residual deficits, obesity, non compliance with medications who was admitted for acute ischemic stroke. He was not a candidate for tPA. MRI brain revealed acute basal ganglia infarct. Echo with bubble study revealed no evidence of ASD however patient was found to have grade 1 diastolic dysfunction. Continue dual antiplatelet therapy including aspirin and plavix. Will continue lipitor. Encourage incentive spirometry. Hematuria has resolved. CT abdomen was unremarkable. Thoracic spine xray revealed Ankyolosing spondylitis. BP was high last night. Will adjust antihypertensive medications. PT recommended [facility]. Upon discharge patient will follow up with Dr Hope. Dr Иван Ramirez
--- NOTE | 2017-07-11 16:17 | PN ---
DATE: 07/11/2017 LOCATION: The patient in room 378, bed 2. REASON FOR CONSULTATION AND FOLLOWUP: Hypertension, CVA, coronary artery disease. SUBJECTIVE: Patient is lying flat in bed without any chest pain, shortness of breath or palpitation. His speech has improved, still has weakness on the left side of the body. Patient denies any chest pain, shortness of breath, palpitation, lying flat in bed. PHYSICAL EXAMINATION: VITAL SIGNS: Blood pressure 197/106, respirations 20, pulse 77, temperature 97.4. HEENT: Head is normocephalic. Eyes: Pupils normal. Conjunctivae normal. Nose and throat normal. NECK: JVP low. Carotid equal. THORAX: AP diameter normal. LUNGS: Clear. CARDIOVASCULAR: S1, S2. ABDOMEN: Soft, nontender. No organomegaly. Bowel sounds normal. EXTREMITIES: No clubbing, no cyanosis. LABORATORY DATA: WBC 6, hemoglobin 15.7, hematocrit 44.1, platelet 172. Sodium 140, potassium 3.6, BUN 17, creatinine 0.9, random sugar 141. AST and ALT normal. Total protein and albumin normal. DIAGNOSES: Acute cerebrovascular accident with expressive aphasia, which is improving, left side weakness is still present, hypertension, right-sided facial droop is also improving, diabetes, hyperlipidemia, cardiomyopathy. Last stress test in 12/2016 showed ejection fraction of 38% and no ischemia. Echo on 07/08/2017 showed normal left ventricular size, normal left ventricular systolic function, ejection fraction 54%, grade 1 abnormal relaxation pattern, intact intraatrial septum with no evidence of atrial septal defect. PLAN: Patient's blood pressure is still high. We will increase hydralazine to 50 mg t.i.d. We will also add clonidine 0.1 mg b.i.d. to the therapy. Patient is on aspirin 81 mg daily, Coreg 3.125 b.i.d., Diovan 320 mg p.o. daily, Lipitor 40 daily, amlodipine 10 daily, Plavix 75 daily, Protonix 40 daily. Patient's pulse this morning when I was examining was 80 per minute. We will follow. Nicola Simon MD [facility] # [id number]
--- NOTE | 2017-07-11 18:26 | PN ---
DATE: 07/11/2017 SUBJECTIVE: The patient is seen lying in bed. He is awake, he is alert. is at the bedside. He denies any headaches. He denies any chest pain. PHYSICAL EXAMINATION: GENERAL: Obese elderly male lying in bed. VITAL SIGNS: Blood pressure 162/89, heart rate 80, respiratory rate 20, temperature 98.2. HEENT: Normocephalic, atraumatic. NECK: Supple, no JVD. LUNGS: Bilateral equal air entry, bilateral equal expansion, no rales. CARDIAC: S1 and S2, regular rate and rhythm, no murmur, no rub. ABDOMEN: Obese, distended, soft, nontender, bowel sounds present. EXTREMITIES: Trace lower extremity edema. INTAKE AND OUTPUT: 400/1100. LABORATORY DATA: WBC 6, hemoglobin 15.7, hematocrit 44, platelets 172. Sodium 140, potassium 3.6, chloride 106, CO2 of 25, BUN 17, creatinine 0.9, glucose 156, calcium 9.2. AST 22, ALT 34, albumin 3.7. Urine culture, no growth. MEDICATIONS: Apresoline, aspirin, Catapres 0.1 b.i.d., Coreg 3.125 b.i.d., Diovan 320, insulin, Lipitor 40, amlodipine 10, nystatin, Plavix 75, Protonix 40, Tylenol, and tramadol. ASSESSMENT: 1. Acute cerebrovascular accident, left hemiparesis. 2. Severe hypertension. 3. Morbid obesity. 4. Diabetes. PLAN: 1. In the setting of acute stroke, we would keep blood pressure somewhat high. Acceptable blood pressure is 160/90 at this time. 2. Continue current management with Diovan 320, amlodipine 10, Coreg 3.125 b.i.d., hydralazine 50 t.i.d. 3. Will require better control of blood pressure in the future. 4. No objection to discharge to rehab from the renal standpoint. Alysia Billy MD
[2017-07-12] MEDS: Hydrocerin(120 gm) TOP SCH ×6 (02:28→22:20)
--- NOTE | 2017-07-12 06:02 | CP.PCM.PN ---
Subjective - Date & Time of Evaluation Date of Evaluation: 07/12/17 Time of Evaluation: 05:59 - Subjective Subjective: Mr. Warner was seen and examined at the bedside. He is alert, oriented. He denies any headache, dizziness, lightheadedness, nausea, or vomiting. He is more awake than previous days. He states of heaviness in the left side of his body. He has the left facial droop, left upper aextremity flaccid and left lower extremity weakness.He is able to follow commands, but sensation is asymmetric with left side less sensation than the right. There was no untoward events overnight. Objective - Vital Signs/Intake and Output Vital Signs (last 24 hours): Temp Pulse Resp BP Pulse Ox 97.6 F 57 L 18 166/87 H 98 07/11/17 23:59 07/12/17 05:48 07/11/17 23:59 07/11/17 23:59 07/11/17 23:59 - Medications Medications: Current Medications Acetaminophen (Tylenol 325mg Tab) 650 mg PO Q4H PRN PRN Reason: Pain, Mild (1-3) Amlodipine Besylate (Norvasc) 10 mg PO DAILY [facility] Last Admin: 07/11/17 10:58 Dose: 10 mg Aspirin (Aspirin Chewable) 81 mg PO DAILY [facility] Last Admin: 07/11/17 10:58 Dose: 81 mg Atorvastatin Calcium (Lipitor) 40 mg PO DIN [facility] Last Admin: 07/11/17 18:22 Dose: 40 mg Carvedilol (Coreg) 3.125 mg PO BID [facility] Last Admin: 07/11/17 18:21 Dose: 3.125 mg Clonidine HCl (Catapres) 0.1 mg PO BID [facility] Last Admin: 07/11/17 18:21 Dose: 0.1 mg Clopidogrel Bisulfate (Plavix) 75 mg PO DAILY [facility] Last Admin: 07/11/17 10:58 Dose: 75 mg Hydralazine HCl (Apresoline) 50 mg PO TID [facility] Last Admin: 07/11/17 18:21 Dose: 50 mg Insulin Human Regular (Humulin R Med) 0 units SC ACHS [facility] PRN Reason: Protocol Last Admin: 07/11/17 21:30 Dose: Not Given Multi-Ingredient Cream (Hydrocerin Cream) 0 ea TOP Q4H [facility] Last Admin: 07/12/17 02:28 Dose: Not Given Nystatin (Nystop Topical Powder) 0 gm TOP DAILY [facility] Last Admin: 07/11/17 12:21 Dose: 1 applic Pantoprazole Sodium (Protonix Ec Tab) 40 mg PO ACB [facility] Last Admin: 07/11/17 07:58 Dose: 40 mg Tramadol HCl (Ultram) 50 mg PO TID PRN PRN Reason: Pain, moderate (4-7) Last Admin: 07/08/17 16:17 Dose: 50 mg Valsartan (Diovan) 320 mg PO DAILY [facility] Last Admin: 07/11/17 10:58 Dose: 320 mg - Labs Labs: 07/11/17 07:00 07/11/17 07:00 PT 12.8 SECONDS (9.4-12.5) H 07/07/17 19:59 INR 1.12 (0.93-1.08) H 07/07/17 19:59 APTT 31.3 Seconds (25.1-36.5) 07/07/17 19:59 - Constitutional Appears: No Acute Distress - Head Exam Head Exam: NORMAL INSPECTION - Neurological Exam Neurological Exam: Alert, Awake, Oriented x3 Neuro motor strength exam: Left Upper Extremity: 0, Right Upper Extremity: 4, Left Lower Extremity: 2/1, Right Lower Extremity: 4 Additional comments: Neurological unchanged from previous examination. Assessment and Plan (1) Acute ischemic stroke Assessment & Plan: Case discussed with Dr. Rivera, continue all current medical, physical, occupational, and speech therapies. Recommend acute rehab for discharge planning , blood pressure and glycemic control. If patient mental status deteriorate, to repeat CT scan of the head without contrast. Patient awaiting placement in an acute rehab. facility. Status: Acute
[2017-07-12 07:09] LABS: HEMOGLOBIN 15.1 g/dL (14.0-18.0); MEAN CELL VOLUME 93.7 fl (80.0-105.0); MEAN CORPUSCULAR HEMOGLOBIN 32.8 pg (25.0-35.0); MEAN PLATELET VOLUME 10.5 fl (7.0-11.0); RBC 4.6 10^6/uL (3.5-6.1); RED CELL DISTRIBUTION WIDTH 13.5 % (11.5-14.5)
[2017-07-12 07:29] LABS: ALB/GLOB RATIO 1.2 (1.1-1.8); ALBUMIN 3.6 g/dL (3.0-4.8); ALT/SGPT 32 U/L (7-56); AST/SGOT 22 U/L (17-59); BLOOD UREA NITROGEN 24 mg/dL (7-21); CALCIUM 9.2 mg/dL (8.4-10.5); GFR AFRICAN-AMERICAN > 60; GFR NON-AFRICAN AMERICAN > 60
[2017-07-12] MEDS: Pantoprazole 40 mg EC Tab PO SCH (07:35)
[2017-07-12] MEDS: Insulin Reg-MEDIUM-Coverage SC SCH ×4 (08:11→23:55)
[2017-07-12] MEDS: Nystatin 100,000 Units/gm Topical Pow(15 gm) TOP SCH (09:37)
--- NOTE | 2017-07-12 11:50 | PN ---
DATE: 07/12/2017 LOCATION: The patient in room 378, bed 2. REASON FOR CONSULTATION AND FOLLOWUP: Hypertension, CVA, coronary artery disease. SUBJECTIVE: Patient denies any chest pain, shortness of breath or palpitation. Still has weakness on the left side, but his speech and facial droop has improved. PHYSICAL EXAMINATION: VITAL SIGNS: Blood pressure 166/76; respirations 19; pulse, I just took myself while examining, pulse is 72 per minute; temperature 97.6. HEENT: Head is normocephalic. Eyes: Pupils, normal. Conjunctivae, normal. Nose and throat, normal. NECK: JVP low. Carotid equal. THORAX: AP diameter normal. LUNGS: Clear. CARDIOVASCULAR: S1, S2. ABDOMEN: Soft, nontender. No organomegaly. Bowel sounds normal. EXTREMITIES: No clubbing, no cyanosis. LABORATORY DATA: WBC 6.0, hemoglobin 15.1, hematocrit 43.1, platelet 172. Sodium 139, potassium 4.0, BUN 24, creatinine 1.0, sugar 144. AST, ALT, total protein and albumin normal. DIAGNOSES: Acute cerebrovascular accident with expressive aphasia, which has improved; left side weakness is still present; hypertension; right-sided facial droop is also improved; diabetes; hyperlipidemia; cardiomyopathy. Last stress test in 12/2016 showed ejection fraction of 38% and no ischemia. Echo on 07/08/2017 showed normal left ventricular size, normal left ventricular systolic function with ejection fraction 54%, grade 1 abnormal relaxation pattern, intact intraatrial septum with no evidence of atrial septal defect. PLAN: Patient's blood pressure although coming down, but is still elevated at 166 and pulse I just took when I examined was 72 per minute, so was we will increase clonidine to 0.2 mg b.i.d. and we will continue the medications Coreg 3.125 b.i.d., aspirin 81 daily, Diovan 320 daily, Lipitor 40 daily, amlodipine 10 daily, Plavix 75 mg daily, Protonix 40 daily and we will continue to follow. Nicola Simon MD
[2017-07-12] MEDS ORDERED: POLYETHYLENE GLYCOL 3350 17 GM/Dose PACKET PO ONE (13:26)
--- NOTE | 2017-07-12 17:44 | CP.PCM.PN ---
Subjective - Date & Time of Evaluation Date of Evaluation: 07/12/17 Time of Evaluation: 17:45 - Subjective Subjective: Medicine progress note: Dr. Josh Ramirez Patient seen and examined at bedside. No acute events overnight, patient's blood pressure and heart rate have finally stabilized. Patient only complains of constipation today, but denies any other acute complaints. Objective - Vital Signs/Intake and Output Vital Signs (last 24 hours): Temp Pulse Resp BP Pulse Ox 97.2 F L 62 16 147/77 99 07/12/17 12:00 07/12/17 14:00 07/12/17 12:00 07/12/17 14:57 07/12/17 06:00 Intake and Output: 07/12/17 07/12/17 06:59 18:59 Intake Total 300 Output Total 700 Balance -400 - Medications Medications: Current Medications Acetaminophen (Tylenol 325mg Tab) 650 mg PO Q4H PRN PRN Reason: Pain, Mild (1-3) Amlodipine Besylate (Norvasc) 10 mg PO DAILY [facility] Last Admin: 07/12/17 09:36 Dose: 10 mg Aspirin (Aspirin Chewable) 81 mg PO DAILY [facility] Last Admin: 07/12/17 09:36 Dose: 81 mg Atorvastatin Calcium (Lipitor) 40 mg PO DIN [facility] Last Admin: 07/11/17 18:22 Dose: 40 mg Carvedilol (Coreg) 6.25 mg PO BID [facility] Clonidine HCl (Catapres) 0.2 mg PO BID PRN PRN Reason: Other Clopidogrel Bisulfate (Plavix) 75 mg PO DAILY [facility] Last Admin: 07/12/17 09:36 Dose: 75 mg Hydralazine HCl (Apresoline) 50 mg PO TID [facility] Last Admin: 07/12/17 14:57 Dose: 50 mg Insulin Human Regular (Humulin R Med) 0 units SC ACHS [facility] PRN Reason: Protocol Last Admin: 07/12/17 16:55 Dose: Not Given Metformin HCl (Glucophage) 500 mg PO BID [facility] Multi-Ingredient Cream (Hydrocerin Cream) 0 ea TOP Q4H [facility] Last Admin: 07/12/17 15:29 Dose: Not Given Nystatin (Nystop Topical Powder) 0 gm TOP DAILY [facility] Last Admin: 07/12/17 09:37 Dose: 1 applic Pantoprazole Sodium (Protonix Ec Tab) 40 mg PO ACB [facility] Last Admin: 07/12/17 07:35 Dose: 40 mg Polyethylene Glycol (Miralax) 17 gm PO BID [facility] Tramadol HCl (Ultram) 50 mg PO TID PRN PRN Reason: Pain, moderate (4-7) Last Admin: 07/08/17 16:17 Dose: 50 mg Valsartan (Diovan) 320 mg PO DAILY [facility] Last Admin: 07/12/17 09:35 Dose: 320 mg - Labs Labs: 07/12/17 06:00 07/12/17 06:00 PT 12.8 SECONDS (9.4-12.5) H 07/07/17 19:59 INR 1.12 (0.93-1.08) H 07/07/17 19:59 APTT 31.3 Seconds (25.1-36.5) 07/07/17 19:59 - Constitutional Appears: Well - Head Exam Head Exam: ATRAUMATIC, NORMAL INSPECTION, NORMOCEPHALIC - Eye Exam Eye Exam: EOMI, Normal appearance, PERRL Pupil Exam: NORMAL ACCOMODATION, PERRL - ENT Exam ENT Exam: Mucous Membranes Moist, Normal Exam - Neck Exam Neck Exam: Full ROM, Normal Inspection. absent: Lymphadenopathy - Respiratory Exam Respiratory Exam: Clear to Ausculation Bilateral, NORMAL BREATHING PATTERN - Cardiovascular Exam Cardiovascular Exam: REGULAR RHYTHM, +S1, +S2. absent: Murmur - GI/Abdominal Exam GI & Abdominal Exam: Soft, Normal Bowel Sounds. absent: Tenderness - Extremities Exam Extremities Exam: Full ROM, Normal Capillary Refill, Normal Inspection. absent : Joint Swelling, Pedal Edema - Back Exam Back Exam: NORMAL INSPECTION - Neurological Exam Neurological Exam: Alert, Awake, CN II-XII Intact, Normal Gait, Oriented x3 - Psychiatric Exam Psychiatric exam: Normal Affect, Normal Mood - Skin Skin Exam: Dry, Intact, Normal Color, Warm Assessment and Plan - Assessment and Plan (Free Text) Assessment: 71 yo M with PMH HTN, peripheral edema, and stroke admitted for acute ischemic stroke. Plan: Acute ischemic stroke - Patient evaluated by Neurologist on arrival, not a candidate for tPA - Head CT showed no acute findings - CTA Head/Neck showed findings suspicious for segmental occlusion or a tight stenosis at the origin of an M2 branch of the R MCA, otherwise no acute abnormality - ASA 325 given in ED - Swallow eval passed, liquid diet - Aspiration and fall precautions - Neuro checks - Neurology consulted MRI of brain without contrast: acute basal ganglia infarct Echo with bubble study: grade I abnormal relaxation Dual antiplatelet therapy Lipitor 40 mg daily HOB 30 degrees NS at 100 HgbA1c, Lipid panel, B12, folate, Vitamin D ordered PT/OT eval and treat: patient was able to be out of bed and take a few steps today. awaiting [facility] - Incentive spirometry Constipation - Added miralax bid Right Hip Pain and Back pain - XR of Hips negative - XR of thoracic spine shows ankylosing spondylosis but no acute fracture - Tylenol for pain CVA Tenderness - Patient had hematuria this am when seen at bedside; but CVA tenderness has resolved - CT Abdomen Pelvis: negative - UA, Urine culture: Both negative (trace LE, but 1-3 WBC's) HTN - No longer needs to have permissive hypertension, control rate of decrease - Continue home medications: Hydralazine, Norvasc, Diovan; Norvasc increased to 10 per Cardio, Hydralazine increased to 50 - Nephro Consult: Dr. Billy Added on coreg - Cardio consult: Dr. Simon Added on clonidine, changed to .2 mg today Peripheral edema - Hold home Lasix to avoid drop in BP GI/DVT Prophylaxis - Protonix - SCDs Dispo: patient awaiting placement at [facility]
--- NOTE | 2017-07-12 17:59 | PN ---
DATE: 07/12/2017 SUBJECTIVE: The patient is seen lying in bed. He is awake, he is alert. Multiple family members are at bedside. He denies any headaches, dizziness. Denies any chest tightness, palpitations. PHYSICAL EXAMINATION: GENERAL: Obese elderly male lying in bed. VITAL SIGNS: Blood pressure 166/76, heart rate 57, respiratory rate 19, and temperature 97.6. HEENT: Normocephalic, atraumatic, positive pallor. NECK: Supple, no JVD. LUNGS: Bilateral equal entry, bilateral equal expansion, no rales. CARDIAC: S1 and S2, regular rate and rhythm, no murmur, no rub. ABDOMEN: Obese, distended, soft, nontender, bowel sounds present. EXTREMITIES: No lower extremity edema. INTAKE AND OUTPUT: Not charted. LABORATORY DATA: WBC 6, hemoglobin 15, hematocrit 43, and platelets 172. Sodium 139, potassium 4, chloride 104, CO2 of 27. BUN 24, creatinine 1. Glucose 170. Calcium 9.2. AST 22, ALT 32. Albumin 3.6. ASSESSMENT AND PLAN: 1. Acute cerebrovascular accident, left hemiparesis. 2. Severe hypertension, blood pressure is now better controlled, optimal for current status. 3. Constipation. 4. [id number] diabetes mellitus. 5. Morbid obesity. PLAN: 1. Continue hydralazine 50 t.i.d., Coreg 3.125 b.i.d., Diovan 320, amlodipine 100would refrain from using clonidine. Would likely increase Coreg if needed, but avoid clonidine since patient is bradycardic. 2. Consider metformin 500 b.i.d. as the patient is close to being discharged. 3. Physical therapy. Alysia Billy MD
[2017-07-12] MEDS ORDERED: POLYETHYLENE GLYCOL 3350 17 GM/Dose PACKET PO SCH (18:00)
[2017-07-13 00:40] VITALS: RESP 19
[2017-07-13] MEDS: Hydrocerin(120 gm) TOP SCH ×3 (02:36→11:34)
[2017-07-13] MEDS: Insulin Reg-MEDIUM-Coverage SC SCH ×3 (08:45→16:59)
--- NOTE | 2017-07-13 10:34 | PN ---
DATE: 07/13/2017 LOCATION: The patient is in room 378, bed 2. REASON FOR CONSULTATION: Hypertension, CVA, coronary artery disease. SUBJECTIVE: Patient lying flat in bed without chest pain, shortness of breath or palpitation. His speech has improved, but still has weakness on left side of the body. Patient denied any chest pain or palpitation. PHYSICAL EXAMINATION: VITAL SIGNS: Blood pressure earlier today was 132/60, now is 150/80; respirations 19; pulse 66; temperature 97.5. HEENT: Head is normocephalic. Eyes: Pupils, normal. Conjunctivae, normal. Nose and throat, normal. NECK: JVP low. Carotid equal. THORAX: AP diameter normal. LUNGS: Clear. CARDIOVASCULAR: S1, S2. ABDOMEN: Protuberant. No organomegaly. EXTREMITIES: No clubbing, no cyanosis. LABORATORY DATA: WBC 6.0, hemoglobin 15.1, hematocrit 43.1, platelet 172. Random sugar 135. Sodium 139, potassium 4.0, BUN 24, creatinine 1.0. AST, ALT, total protein and albumin normal. DIAGNOSES: Acute cerebrovascular accident with expressive aphasia, right-sided facial droop, which has improved, but weakness on the left side is persistent. The patient's stress test in 12/2016 showed ejection fraction of 38% and there was no ischemia. Echo on 07/08/2017 showed normal left ventricular size, normal left ventricular systolic function with ejection fraction of 54%, grade 1 abnormal relaxation pattern of left ventricular, intact intraatrial septum with no evidence of atrial septal defect. PLAN: Yesterday, I increased the clonidine dose to 0.2 mg b.i.d. and continued Coreg 3.125 b.i.d., aspirin 81 daily, Diovan 320 daily, Lipitor 40 daily, amlodipine 10 daily, Plavix 75 daily, Protonix 40 daily and the blood pressure is coming down; so, we will continue present therapy and monitor blood pressure and we will follow. Nicola Simon MD
[2017-07-13] MEDS: Pantoprazole 40 mg EC Tab PO SCH (11:33)
--- NOTE | 2017-07-13 13:19 | CP.PCM.PN ---
Subjective - Date & Time of Evaluation Date of Evaluation: 07/13/17 Time of Evaluation: 13:19 - Subjective Subjective: Mr. Warner was seen and examined at the bedside. He is alert, oriented. He denies any headache, dizziness, lightheadedness, nausea, or vomiting. He is more awake than previous days. He states of heaviness in the left side of his body. He has the left facial droop, left upper extremity flaccid and left lower extremity weakness.He is able to follow commands, but sensation is asymmetric with left side less sensation than the right. He further states of inability to move his bowels and making him uncomfortable. He was not able to move bowel for couple days, on stool softener regimen. He is for transfers to [facility] today.There was no untoward events overnight. Objective - Vital Signs/Intake and Output Vital Signs (last 24 hours): Temp Pulse Resp BP Pulse Ox 97.5 F L 78 19 132/69 95 07/13/17 06:00 07/13/17 12:58 07/13/17 06:00 07/13/17 12:58 07/13/17 06:00 Intake and Output: 07/13/17 07/13/17 06:59 18:59 Intake Total 480 Output Total 700 Balance -220 - Medications Medications: Current Medications Acetaminophen (Tylenol 325mg Tab) 650 mg PO Q4H PRN PRN Reason: Pain, Mild (1-3) Amlodipine Besylate (Norvasc) 10 mg PO DAILY [facility] Last Admin: 07/13/17 11:33 Dose: 10 mg Aspirin (Aspirin Chewable) 81 mg PO DAILY [facility] Last Admin: 07/13/17 11:33 Dose: 81 mg Atorvastatin Calcium (Lipitor) 40 mg PO DIN [facility] Last Admin: 07/12/17 18:45 Dose: 40 mg Carvedilol (Coreg) 6.25 mg PO BID [facility] Last Admin: 07/13/17 11:32 Dose: 6.25 mg Clonidine HCl (Catapres) 0.2 mg PO BID PRN PRN Reason: Other Clopidogrel Bisulfate (Plavix) 75 mg PO DAILY [facility] Last Admin: 07/13/17 11:33 Dose: 75 mg Docusate Sodium (Colace) 100 mg PO BID [facility] Last Admin: 07/13/17 13:00 Dose: Not Given Hydralazine HCl (Apresoline) 50 mg PO TID [facility] Last Admin: 07/13/17 11:32 Dose: 50 mg Insulin Human Regular (Humulin R Med) 0 units SC ACHS [facility] PRN Reason: Protocol Last Admin: 07/13/17 11:38 Dose: 1 units Lactulose (Enulose) 20 gm PO ONCE ONE Stop: 07/13/17 13:19 Metformin HCl (Glucophage) 500 mg PO BID [facility] Last Admin: 07/13/17 11:32 Dose: 500 mg Multi-Ingredient Cream (Hydrocerin Cream) 0 ea TOP Q4H [facility] Last Admin: 07/13/17 11:34 Dose: 1 applic Nystatin (Nystop Topical Powder) 0 gm TOP DAILY [facility] Last Admin: 07/12/17 09:37 Dose: 1 applic Pantoprazole Sodium (Protonix Ec Tab) 40 mg PO ACB [facility] Last Admin: 07/13/17 11:33 Dose: 40 mg Polyethylene Glycol (Miralax) 17 gm PO TID [facility] Tramadol HCl (Ultram) 50 mg PO TID PRN PRN Reason: Pain, moderate (4-7) Last Admin: 07/08/17 16:17 Dose: 50 mg Valsartan (Diovan) 320 mg PO DAILY [facility] Last Admin: 07/13/17 11:32 Dose: 320 mg - Labs Labs: 07/12/17 06:00 07/12/17 06:00 PT 12.8 SECONDS (9.4-12.5) H 07/07/17 19:59 INR 1.12 (0.93-1.08) H 07/07/17 19:59 APTT 31.3 Seconds (25.1-36.5) 07/07/17 19:59 - Constitutional Appears: No Acute Distress - Head Exam Head Exam: NORMAL INSPECTION - Neurological Exam Neurological Exam: Alert, Awake, Oriented x3 Neuro motor strength exam: Left Upper Extremity: 0, Right Upper Extremity: 5, Left Lower Extremity: 3, Right Lower Extremity: 5 Additional comments: Neurologicalunchanged from previous examination. Assessment and Plan (1) Acute ischemic stroke Assessment & Plan: Case discussed with Dr. Castillo, continue all current medical, physical, occupational, and speech therapies. Recommend acute rehab for discharge planning , blood pressure and glycemic control. If patient mental status deteriorate, to repeat CT scan of the head without contrast. Recommend lactulose 20 gm po for one dose for constipation. Status: Acute
[2017-07-13] MEDS: POLYETHYLENE GLYCOL 3350 17 GM/Dose PACKET PO SCH ×2 (13:32→17:23)
--- NOTE | 2017-07-13 16:03 | CP.PCM.DIS ---
<Jordan Mccoy - Last Filed: 07/13/17 17:57> Provider - Provider Date of Admission: 07/08/17 10:26 Attending physician: Moraima Pulido MD Primary care physician: Anirudh Ely MD Time Spent in preparation of Discharge (in minutes): 45 Hospital Course - Lab Results Lab Results: Micro Results 07/09/17 05:19 Urine,Jay Urine Culture - Final No Growth (<1,000 CFU/ML) Most Recent Lab Values WBC 6.0 10^3/ul (4.5-11.0) 07/12/17 06:00 RBC 4.60 10^6/uL (3.5-6.1) 07/12/17 06:00 Hgb 15.1 g/dL (14.0-18.0) 07/12/17 06:00 Hct 43.1 % (42.0-52.0) 07/12/17 06:00 MCV 93.7 fl (80.0-105.0) 07/12/17 06:00 MCH 32.8 pg (25.0-35.0) 07/12/17 06:00 MCHC 35.0 g/dl (31.0-37.0) 07/12/17 06:00 RDW 13.5 % (11.5-14.5) 07/12/17 06:00 Plt Count 172 10^3/uL (120.0-450.0) 07/12/17 06:00 MPV 10.5 fl (7.0-11.0) 07/12/17 06:00 Gran % 56.3 % (50.0-68.0) 07/07/17 19:59 Lymph % (Auto) 30.0 % (22.0-35.0) 07/07/17 19:59 [place] % (Auto) 11.6 % (1.0-6.0) H 07/07/17 19:59 Eos % (Auto) 1.9 % (1.5-5.0) 07/07/17 19:59 Baso % (Auto) 0.2 % (0.0-3.0) 07/07/17 19:59 Gran # 3.02 (1.4-6.5) 07/07/17 19:59 Lymph # (Auto) 1.6 (1.2-3.4) 07/07/17 19:59 [place] # (Auto) 0.6 (0.1-0.6) 07/07/17 19:59 Eos # (Auto) 0.1 (0.0-0.7) 07/07/17 19:59 Baso # (Auto) 0.01 K/mm3 (0.0-2.0) 07/07/17 19:59 PT 12.8 SECONDS (9.4-12.5) H 07/07/17 19:59 INR 1.12 (0.93-1.08) H 07/07/17 19:59 APTT 31.3 Seconds (25.1-36.5) 07/07/17 19:59 Sodium 139 mmol/L (132-148) 07/12/17 06:00 Potassium 4.0 mmol/L (3.6-5.0) 07/12/17 06:00 Chloride 104 mmol/L (98-107) 07/12/17 06:00 Carbon Dioxide 27 mmol/L (21-33) 07/12/17 06:00 Anion Gap 12 (10-20) 07/12/17 06:00 BUN 24 mg/dL (7-21) H 07/12/17 06:00 Creatinine 1.0 mg/dl (0.8-1.5) 07/12/17 06:00 Est GFR ( Amer) > 60 07/12/17 06:00 Est GFR (Non-Af Amer) > 60 07/12/17 06:00 POC Glucose (mg/dL) 161 mg/dL (65-110) H 07/13/17 11:31 Random Glucose 170 mg/dL (70-110) H 07/12/17 06:00 Hemoglobin A1c 6.8 % (4.2-6.5) H 07/07/17 19:59 Calcium 9.2 mg/dL (8.4-10.5) 07/12/17 06:00 Phosphorus 3.2 mg/dL (2.5-4.5) 07/08/17 06:10 Magnesium 2.3 mg/dL (1.7-2.2) H 07/08/17 06:10 Total Bilirubin 1.0 mg/dL (0.2-1.3) 07/12/17 06:00 AST 22 U/L (17-59) 07/12/17 06:00 ALT 32 U/L (7-56) 07/12/17 06:00 Alkaline Phosphatase 89 U/L (38-126) 07/12/17 06:00 Troponin I < 0.01 ng/mL 07/07/17 19:59 Total Protein 6.5 g/dL (5.8-8.3) 07/12/17 06:00 Albumin 3.6 g/dL (3.0-4.8) 07/12/17 06:00 Globulin 2.9 gm/dL 07/12/17 06:00 Albumin/Globulin Ratio 1.2 (1.1-1.8) 07/12/17 06:00 Triglycerides 87 mg/dL (35-160) 07/08/17 06:10 Cholesterol 140 mg/dL (130-200) 07/08/17 06:10 LDL Cholesterol Direct 89 mg/dL (0-129) 07/08/17 06:10 HDL Cholesterol 36 mg/dL (29-60) 07/08/17 06:10 Vitamin B12 416 pg/mL (239-931) 07/08/17 06:10 25-OH Vitamin D Total 31.6 NG/ML (30.0-100.0) 07/08/17 06:10 Folate 18.1 ng/mL 07/08/17 06:10 TSH 3rd Generation 1.63 mIU/mL (0.46-4.68) 07/08/17 06:00 Urine Color Yellow (YELLOW) 07/09/17 18:10 Urine Appearance Clear (CLEAR) 07/09/17 18:10 Urine pH 6.5 (4.7-8.0) 07/09/17 18:10 Ur Specific [place] 1.020 (1.005-1.035) 07/09/17 18:10 Urine Protein 30 mg/dL (<30 mg/dL) H 07/09/17 18:10 Urine Glucose (UA) 500 mg/dL (NEGATIVE) H 07/09/17 18:10 Urine Ketones 40 mg/dL (NEGATIVE) H 07/09/17 18:10 Urine Blood Large (NEGATIVE) H 07/09/17 18:10 Urine Nitrate Negative (NEGATIVE) 07/09/17 18:10 Urine Bilirubin Negative (NEGATIVE) 07/09/17 18:10 Urine Urobilinogen 0.2 E.U./dL (<1 E.U./dL) 07/09/17 18:10 Ur Leukocyte Esterase Trace Germán/uL (NEGATIVE) H 07/09/17 18:10 Urine RBC Tntc /hpf (0-2) 07/09/17 18:10 Urine WBC 1 - 3 /hpf (0-6) 07/09/17 18:10 Ur Epithelial Cells 0 - 2 /hpf (0-5) 07/09/17 18:10 Urine Bacteria Trace (NEG) 07/09/17 18:10 - Hospital Course Hospital Course: HPI Day of admission: Pt is a 71 yo with PMH of HTN, peripheral edema, and CVA (09/2016) presents to [facility] after facial droop and witnessed fall. Pt states that he had recently flown back to [place] from [place] around 4 pm prior to arrival at ED. Once patient got home he tried to drink toro robbin and began to choke. Pt states that his left leg felt weak and he subsequently fell. Pt and family denies any trauma during the fall. Pt's family noticed a left facial droop, right eye swelling, and slurred speech. Pt also complained of fatigue and left flank pain for the past 10 days, but denied any urinary symptoms. he was not a candidate for IV tPA. Throughout patient's course here, he was having resistant hypertension. Dr. Simon and Dr. Billy were on board, and changed his medications to .2 Clonidine TID and Coreg BID, in addition to norvasc, diovan and hydralazine. Patient's blood pressure normalized the day before discharge. Patient's residual left sided deficits were unchanged but stable. His dysarthria improved significantly while here. Patient also complained of rib, cva, and knee pain while here. Imaging was done to rule out any fractures. The following imaging studies were performed while he was in the hospital: CT head negative CTA head/neck findings suspicious for segmental occlusion or a tight stenosis at the origin of an M2 branch of the R MCA, otherwise no acute abnormality Abdomen/Pelvis CT: no acute findings Thoracic spine xray: negative MRI Brain: Acute Basal Ganglia infarct Patient was stable for discharge to [facility]. Discharge Exam - Head Exam Head Exam: NORMAL INSPECTION - Eye Exam Eye Exam: EOMI, Normal appearance, PERRL Pupil Exam: NORMAL ACCOMODATION, PERRL - Respiratory Exam Respiratory Exam: Clear to PA & Lateral, NORMAL BREATHING PATTERN, UNREMARKABLE - Cardiovascular Exam Cardiovascular Exam: REGULAR RHYTHM - GI/Abdominal Exam GI & Abdominal Exam: Normal Bowel Sounds - Neurological Exam Neurological exam: Alert, CN II-XII Intact, Normal Gait, Oriented x3, Reflexes Normal - Psychiatric Exam Psychiatric exam: Normal Affect, Normal Mood - Skin Skin Exam: Dry, Intact, Normal Color, Warm Discharge Plan - Follow Up Plan Condition: FAIR Disposition: TRANSF TO SNF Instructions: Stroke, Stroke (DC), Lowering the Risk of Having Another Stroke, Medicines After an Ischemic Stroke, Recovery After Stroke, Risk Factors for Stroke, Stroke Rehab Information, Stroke Rehab Exercises, Cellulitis (DC), Cellulitis (GEN) Additional Instructions: please take meds as prescribed please follow up with dr ely on discharge if symptoms continue return to ed Please give voiding trial and discontinue jay in rehab. Referrals: Anirudh Ely MD [Primary Care Provider] - <Moraima Pulido - Last Filed: 07/14/17 07:50> Provider - Provider Date of Admission: 07/08/17 10:26 Attending physician: Moraima Pulido MD Primary care physician: Anirudh Ely MD Hospital Course - Lab Results Lab Results: Micro Results 07/09/17 05:19 Urine,Jay Urine Culture - Final No Growth (<1,000 CFU/ML) Most Recent Lab Values WBC 6.0 10^3/ul (4.5-11.0) 07/12/17 06:00 RBC 4.60 10^6/uL (3.5-6.1) 07/12/17 06:00 Hgb 15.1 g/dL (14.0-18.0) 07/12/17 06:00 Hct 43.1 % (42.0-52.0) 07/12/17 06:00 MCV 93.7 fl (80.0-105.0) 07/12/17 06:00 MCH 32.8 pg (25.0-35.0) 07/12/17 06:00 MCHC 35.0 g/dl (31.0-37.0) 07/12/17 06:00 RDW 13.5 % (11.5-14.5) 07/12/17 06:00 Plt Count 172 10^3/uL (120.0-450.0) 07/12/17 06:00 MPV 10.5 fl (7.0-11.0) 07/12/17 06:00 Gran % 56.3 % (50.0-68.0) 07/07/17 19:59 Lymph % (Auto) 30.0 % (22.0-35.0) 07/07/17 19:59 [place] % (Auto) 11.6 % (1.0-6.0) H 07/07/17 19:59 Eos % (Auto) 1.9 % (1.5-5.0) 07/07/17 19:59 Baso % (Auto) 0.2 % (0.0-3.0) 07/07/17 19:59 Gran # 3.02 (1.4-6.5) 07/07/17 19:59 Lymph # (Auto) 1.6 (1.2-3.4) 07/07/17 19:59 [place] # (Auto) 0.6 (0.1-0.6) 07/07/17 19:59 Eos # (Auto) 0.1 (0.0-0.7) 07/07/17 19:59 Baso # (Auto) 0.01 K/mm3 (0.0-2.0) 07/07/17 19:59 PT 12.8 SECONDS (9.4-12.5) H 07/07/17 19:59 INR 1.12 (0.93-1.08) H 07/07/17 19:59 APTT 31.3 Seconds (25.1-36.5) 07/07/17 19:59 Sodium 139 mmol/L (132-148) 07/12/17 06:00 Potassium 4.0 mmol/L (3.6-5.0) 07/12/17 06:00 Chloride 104 mmol/L (98-107) 07/12/17 06:00 Carbon Dioxide 27 mmol/L (21-33) 07/12/17 06:00 Anion Gap 12 (10-20) 07/12/17 06:00 BUN 24 mg/dL (7-21) H 07/12/17 06:00 Creatinine 1.0 mg/dl (0.8-1.5) 07/12/17 06:00 Est GFR ( Amer) > 60 07/12/17 06:00 Est GFR (Non-Af Amer) > 60 07/12/17 06:00 POC Glucose (mg/dL) 142 mg/dL (65-110) H 07/13/17 16:24 Random Glucose 170 mg/dL (70-110) H 07/12/17 06:00 Hemoglobin A1c 6.8 % (4.2-6.5) H 07/07/17 19:59 Calcium 9.2 mg/dL (8.4-10.5) 07/12/17 06:00 Phosphorus 3.2 mg/dL (2.5-4.5) 07/08/17 06:10 Magnesium 2.3 mg/dL (1.7-2.2) H 07/08/17 06:10 Total Bilirubin 1.0 mg/dL (0.2-1.3) 07/12/17 06:00 AST 22 U/L (17-59) 07/12/17 06:00 ALT 32 U/L (7-56) 07/12/17 06:00 Alkaline Phosphatase 89 U/L (38-126) 07/12/17 06:00 Troponin I < 0.01 ng/mL 07/07/17 19:59 Total Protein 6.5 g/dL (5.8-8.3) 07/12/17 06:00 Albumin 3.6 g/dL (3.0-4.8) 07/12/17 06:00 Globulin 2.9 gm/dL 07/12/17 06:00 Albumin/Globulin Ratio 1.2 (1.1-1.8) 07/12/17 06:00 Triglycerides 87 mg/dL (35-160) 07/08/17 06:10 Cholesterol 140 mg/dL (130-200) 07/08/17 06:10 LDL Cholesterol Direct 89 mg/dL (0-129) 07/08/17 06:10 HDL Cholesterol 36 mg/dL (29-60) 07/08/17 06:10 Vitamin B12 416 pg/mL (239-931) 07/08/17 06:10 25-OH Vitamin D Total 31.6 NG/ML (30.0-100.0) 07/08/17 06:10 Folate 18.1 ng/mL 07/08/17 06:10 TSH 3rd Generation 1.63 mIU/mL (0.46-4.68) 07/08/17 06:00 Urine Color Yellow (YELLOW) 07/09/17 18:10 Urine Appearance Clear (CLEAR) 07/09/17 18:10 Urine pH 6.5 (4.7-8.0) 07/09/17 18:10 Ur Specific [place] 1.020 (1.005-1.035) 07/09/17 18:10 Urine Protein 30 mg/dL (<30 mg/dL) H 07/09/17 18:10 Urine Glucose (UA) 500 mg/dL (NEGATIVE) H 07/09/17 18:10 Urine Ketones 40 mg/dL (NEGATIVE) H 07/09/17 18:10 Urine Blood Large (NEGATIVE) H 07/09/17 18:10 Urine Nitrate Negative (NEGATIVE) 07/09/17 18:10 Urine Bilirubin Negative (NEGATIVE) 07/09/17 18:10 Urine Urobilinogen 0.2 E.U./dL (<1 E.U./dL) 07/09/17 18:10 Ur Leukocyte Esterase Trace Germán/uL (NEGATIVE) H 07/09/17 18:10 Urine RBC Tntc /hpf (0-2) 07/09/17 18:10 Urine WBC 1 - 3 /hpf (0-6) 07/09/17 18:10 Ur Epithelial Cells 0 - 2 /hpf (0-5) 07/09/17 18:10 Urine Bacteria Trace (NEG) 07/09/17 18:10 Attending/Attestation - Attestation I have personally seen and examined this patient.: Yes I have fully participated in the care of the patient.: Yes I have reviewed all pertinent clinical information, including history, physical exam and plan: Yes Notes (Text): 07/14/17 07:44 Attending note; Patient seen and examined with resident. Patient is a 71 year old male with history of hypertension, peripheral edema, lacunar infarct with no residual deficits, obesity, non compliance with medications who was admitted for acute ischemic stroke. He was not a candidate for tPA. MRI brain revealed acute basal ganglia infarct. Echo with bubble study revealed no evidence of ASD. Continue dual antiplatelet therapy including aspirin and plavix. Will continue lipitor. Encourage incentive spirometry. Hematuria has resolved. CT abdomen was unremarkable. Thoracic spine xray revealed Ankyolosing spondylitis. Hypertension; medications adjusted by cardiology . Nephrology evaluation appreciated . Patient has Jay catheter ; voiding trial and Jay removal . Nursing staff informed . PT recommended [facility]. Patient was accepted in [facility] rehabilitation. Jay removal at [facility]. Upon discharge patient will follow up with . Diagnosis; Acute basal ganglia infarct Left hemiparesis Hypertension Diabetes Hyperlipidemia 07/14/17 07:48 07/14/17 07:50
[2017-07-13 18:14] VITALS: BP 156/79; PULSE 66; TEMP 98.2; O2SAT 100
--- NOTE | 2017-07-13 18:32 | PN ---
DATE: 07/13/2017 SUBJECTIVE: The patient is seen lying in bed. He is awake. He is alert. He is having trouble chewing his food. PREMEDICATION: GENERAL: Obese elderly male, lying in bed. VITAL SIGNS: Blood pressure 160/102 at 06:00 a.m., repeat blood pressure 132/69; heart rate 78; respiratory rate 20, temperature 98.7. HEENT: Normocephalic, atraumatic. NECK: Supple, no JVD. LUNGS: Bilateral equal air entry, bilateral equal expansion. CARDIAC: S1 and S2, regular rate and rhythm, no murmur, no rub. ABDOMEN: Obese, distended, soft, nontender, bowel sounds present. EXTREMITIES: Trace lower extremity edema. INTAKE AND OUTPUT: 480/700. LABORATORY DATA: No new labs. MEDICATIONS: Apresoline 50 t.i.d., Catapres 0.2 b.i.d. p.r.n., Colace, Coreg 6.25 b.i.d., Diovan 320, metformin 500 b.i.d., Lipitor, MiraLax, amlodipine 10, nystatin, Plavix, Protonix, Tylenol. ASSESSMENT: 1. Acute cerebrovascular accident with left hemiparesis. 2. Hypertension, adequately controlled. 3. Morbid obesity. 4. Uud-[id number]-[id number] diabetes mellitus. 5. Difficulty chewing. PLAN: 1. Continue current antihypertensive regimen. 2. Physical therapy. 3. No objection to discharge. 4. Remove More as soon as possible. Alysia Billy MD
== END 2017-07-13 18:32 | DRG 65 ==
LOC: ED 19:29 → ERH 22:35 → 3RSO 23:48 → OBSVTOIN 07-08 10:26 → 3RSO 07-09 19:27
PROVIDERS: ADMIT Hospitalist; ATTEND Internal Medicine
DX: I63.9 Cerebral infarction, unspecified (principal); G81.94 Hemiplegia, unspecified affecting left nondominant side; I42.9 Cardiomyopathy, unspecified; T83.83XA Hemorrhage due to genitourinary prosthetic devices, implants and grafts, initial encounter; Q25.45 Double aortic arch; Z68.41 Body mass index [BMI] 40.0-44.9, adult; I10 Essential (primary) hypertension; E78.5 Hyperlipidemia, unspecified; E11.9 Type 2 diabetes mellitus without complications; R47.1 Dysarthria and anarthria; R29.810 Facial weakness; M45.4 Ankylosing spondylitis of thoracic region; R47.01 Aphasia; E66.01 Morbid (severe) obesity due to excess calories; R29.703 NIHSS score 3; I25.10 Atherosclerotic heart disease of native coronary artery without angina pectoris; I89.0 Lymphedema, not elsewhere classified; K59.00 Constipation, unspecified; Y84.6 Urinary catheterization as the cause of abnormal reaction of the patient, or of later complication, without mention of misadventure at the time of the procedure; Z79.4 Long term (current) use of insulin; Z91.14 Patient's other noncompliance with medication regimen

== ENCOUNTER 2017-12-24 14:39 | Emergency (ER) | payer MEDICARE, BC ==
[2017-12-24 14:53] VITALS: BMI 34.8
[2017-12-24 14:56] VITALS: TEMP 98.2
--- NOTE | 2017-12-24 14:59 | ED PDOC ---
Arrival/HPI - General Chief Complaint: High Blood Pressure Time Seen by Provider: 12/24/17 14:41 Historian: Patient, Spouse - History of Present Illness Time/Duration: Other (this morning) Symptom Onset: Gradual Symptom Course: Improving Severity Level: Mild Activities at Onset: Rest Associated Symptoms (Text): 12/24/17 14:57 Patient complains of feeling dizzy this morning. The dizziness has since resolved. His home physical therapist found the patient to be hypertensive with blood pressure 169/108 and he was directed to the emergency department. His dizziness has since completely resolved. There is a history of a CVA last spring with left upper and left lower extremity weakness. No chest pain palpitations or dyspnea. Patient had a loop recorder placed on December 10. No fever or chills. No abdominal pain nausea or vomiting. No cough congestion or URI. He is pleasant and comfortable. Past Medical History - Past History Past History: No Previous - Infectious Disease Hx of Infectious Diseases: None - Past Medical History Past Medical History: No Previous - Cardiac Hx Cardiac Disorders: Yes (CAD) Hx Hypertension: Yes - Neurological HX Cerebrovascular Accident: Yes - Endocrine/Metabolic Hx Diabetes Mellitus Type 2: Yes - Integumentary Other/Comment: has been seen by Dr Flores for care to right lower leg/ lymphedema - Musculoskeletal/Rheumatological Hx Falls: No - Gastrointestinal Hx Gastrointestinal Disorders: No - Psychiatric Hx Psychophysiologic Disorder: No Hx Substance Use: No - Past Surgical History Past Surgical History: Non-Contributing - Surgical History Other/Comment: varicose vein injections with Dr Luis Zhou in 2009 - Anesthesia Hx Anesthesia: Yes Hx Anesthesia Reactions: No Hx Malignant Hyperthermia: No - Suicidal Assessment Feels Threatened In Home Enviroment: No Family/Social History - Physician Review Nursing Documentation Reviewed: Yes Family/Social History: Unknown Family HX Smoking Status: Never Smoked Hx Alcohol Use: Yes (wine) Hx Substance Use: No Allergies/Home Meds Allergies/Adverse Reactions: Allergies No Known Allergies Allergy (Verified 12/24/17 15:03) Home Medications: Home Meds Medication Instructions Recorded Confirmed Furosemide [Lasix] 40 mg PO DAILY 12/26/16 07/08/17 Review of Systems - Physician Review All systems were reviewed & negative as marked: Yes - Review of Systems Constitutional: absent: Fatigue, Fevers Respiratory: absent: SOB, Cough, Wheezing Cardiovascular: absent: Chest Pain, Palpitations, Syncope Gastrointestinal: absent: Abdominal Pain, Diarrhea, Vomiting Neurological: Dizziness, Focal Weakness. absent: Headache Physical Exam Vital Signs Temp Pulse Resp BP Pulse Ox 12/24/17 14:55 98.2 F 60 18 145/73 97 Temperature: Afebrile Blood Pressure: Normal Pulse: Regular Respiratory Rate: Normal Appearance: Positive for: Well-Appearing, Non-Toxic, Comfortable Pain Distress: None Mental Status: Positive for: Alert and Oriented X 3 - Systems Exam Head: Present: Atraumatic, Normocephalic Pupils: Present: PERRL Extroacular Muscles: Present: EOMI Conjunctiva: Present: Normal Mouth: Present: Moist Mucous Membranes Pharnyx: No: ERYTHEMA, EXUDATE, TONSILS ENLARGED Neck: Present: Normal Range of Motion Respiratory/Chest: Present: Clear to Auscultation, Good Air Exchange, Decreased Breath Sounds. No: Respiratory Distress, Accessory Muscle Use Cardiovascular: Present: Regular Rate and Rhythm, Normal S1, S2. No: Murmurs Abdomen: No: Tenderness, Distention, Peritoneal Signs, Rebound, Guarding Back: Present: Normal Inspection Upper Extremity: Present: Normal Inspection. No: Cyanosis, Edema Lower Extremity: Present: Normal Inspection. No: Edema Neurological: Present: GCS=15, CN II-XII Intact, Speech Normal. No: Motor Func Grossly Intact (old left upper extremity and left lower extremity weakness) Skin: Present: Warm, Dry, Normal Color. No: Rashes Psychiatric: Present: Alert, Oriented x 3, Normal Insight, Normal Concentration Medical Decision Making ED Course and Treatment: 12/24/17 15:31 EKG shows normal sinus rhythm rate approximately 60 with a primary AV block and poor R-wave progression with Q waves inferiorly and nonspecific T-wave changes - Lab Interpretations Lab Results: 12/24/17 15:10 12/24/17 15:10 Lab Results 12/24/17 15:10: Sodium 142, Potassium 4.1, Chloride 108 H, Carbon Dioxide 26, Anion Gap 13, BUN 22 H, Creatinine 1.1, Est GFR ( Amer) > 60, Est GFR ( Non-Af Amer) > 60, Random Glucose 86, Calcium 8.9, Magnesium 1.6 L, Total Bilirubin 0.6, AST 31, ALT 29, Alkaline Phosphatase 79, Lactate Dehydrogenase 336, Total Creatine Kinase Pending, Troponin I < 0.01, Total Protein 6.3, Albumin 3.4, Globulin 2.9, Albumin/Globulin Ratio 1.2 12/24/17 15:10: WBC 4.2 L D, RBC 4.03, Hgb 13.1 L D, Hct 37.7 L, MCV 93.5, MCH 32.5, MCHC 34.7, RDW 13.0, Plt Count 156, MPV 10.7, Gran % 57.2, Lymph % (Auto) 34.2, [place] % (Auto) 6.5 H, Eos % (Auto) 1.9, Baso % (Auto) 0.2, Gran # 2.39, Lymph # (Auto) 1.4, [place] # (Auto) 0.3, Eos # (Auto) 0.1, Baso # (Auto) 0.01 - RAD Interpretation Radiology Orders: 12/24/17 14:56 CHEST PORTABLE [RAD] Stat Chest one view as read by the radiologist shows cardiomegaly with no infiltrate or effusion. Cardiomegaly is unchanged. Highway Engineering Teacher: Radiologist Disposition/Present on Arrival - Present on Arrival Any Indicators Present on Arrival: No History of DVT/PE: No History of Uncontrolled Diabetes: No Urinary Catheter: No History of Decub. Ulcer: No History Surgical Site Infection Following: None - Disposition Have Diagnosis and Disposition been Completed?: Yes Diagnosis: Hypertension, Dizziness Disposition: HOME/ ROUTINE Disposition Time: 15:49 Patient Plan: Discharge Condition: GOOD Discharge Instructions (ExitCare): High Blood Pressure in Adults, Vertigo (a Type of Dizziness) Forms: [employer] (Italian)
--- NOTE | 2017-12-24 15:20 | RAD ---
Date of service: 12/24/2017 HISTORY: htn COMPARISON: Frontal chest radiograph 07/07/2017. FINDINGS: LUNGS: No active pulmonary disease. PLEURA: No significant pleural effusion identified, no pneumothorax apparent. CARDIOVASCULAR: Cardiomegaly is stable. No definite pulmonary vascular congestion. Patient rotated toward the left centering right hilar vascular markings somewhat. OSSEOUS STRUCTURES: No significant abnormalities. VISUALIZED UPPER ABDOMEN: Normal. OTHER FINDINGS: None. IMPRESSION: Cardiomegaly. No definite pulmonary vascular congestion. No acute pulmonary disease appreciable.
[2017-12-24 15:21] LABS: BASO # 0.01 K/mm3 (0.0-2.0); BASO % 0.2 % (0.0-3.0); EOS # 0.1 (0.0-0.7); EOS % 1.9 % (1.5-5.0); GRAN # 2.39 (1.4-6.5); GRAN % 57.2 % (50.0-68.0); HEMOGLOBIN 13.1 g/dL (14.0-18.0); LYMPH # 1.4 (1.2-3.4); LYMPH % 34.2 % (22.0-35.0); MEAN CELL VOLUME 93.5 fl (80.0-105.0); MEAN CORPUSCULAR HEMOGLOBIN 32.5 pg (25.0-35.0); MEAN CORPUSCULAR HGB CONC 34.7 g/dl (31.0-37.0); MEAN PLATELET VOLUME 10.7 fl (7.0-11.0); MONO # 0.3 (0.1-0.6); MONO % 6.5 % (1.0-6.0); RBC 4.03 10^6/uL (3.5-6.1); WHITE BLOOD COUNT 4.2 10^3/ul (4.5-11.0)
[2017-12-24 15:32] LABS: ALB/GLOB RATIO 1.2 (1.1-1.8); ALBUMIN 3.4 g/dL (3.0-4.8); ALT/SGPT 29 U/L (7-56); AST/SGOT 31 U/L (17-59); BLOOD UREA NITROGEN 22 mg/dL (7-21); CALCIUM 8.9 mg/dL (8.4-10.5); GFR NON-AFRICAN AMERICAN > 60
[2017-12-24 15:44] LABS: TROPONIN I < 0.01 ng/mL
[2017-12-24 16:10] VITALS: BP 138/74; PULSE 59; RESP 16; O2SAT 98
--- NOTE | 2017-12-24 18:28 | CARD ---
APPROVED REPORT Date of service: 12/24/2017 EKG Measurement Heart [id number] <Conclusion> Sinus bradycardia Voltage criteria for left ventricular hypertrophy Inferior infarct, age undetermined Abnormal ECG
== END 2017-12-24 16:11 | disposition home or self-care (01) ==
LOC: ED 14:39
DX: I10 Essential (primary) hypertension (principal); R42 Dizziness and giddiness; I25.10 Atherosclerotic heart disease of native coronary artery without angina pectoris; E11.9 Type 2 diabetes mellitus without complications; Z86.73 Personal history of transient ischemic attack (TIA), and cerebral infarction without residual deficits